=== PATIENT | female | born 1960 | race African-American/Black ===

== ENCOUNTER 2020-05-31 10:10 | Emergency (ER) | payer OTHER, SELFPAY ==
--- NOTE | 2020-05-31 10:18 | ED.GENADULT ---
HPI - General Adult General Chief complaint: Abdominal Pain Stated complaint: Abdominal and hip pain Time Seen by Provider: 05/31/20 10:18 Source: patient Mode of arrival: ambulatory Limitations: no limitations History of Present Illness HPI narrative: 60-year-old female patient presents to the [facility] with complaints of abdominal pain that has been going on since Saturday. Patient states the abdominal pain does radiate to the right hip at times. Patient states is been intermittent all weekend however got increasingly worse yesterday and today. Patient states that sitting still she rates her pain 3 out of 10 however moving and trying to walk states that her abdominal pain increases to about 8 out of 10. Denies any fevers, nausea, vomiting or diarrhea. Patient denies seeing anything for pain today. Patient denies any pain with urination urgency or frequency. Related Data Home Medications Medication Instructions Recorded Confirmed metformin 500 mg tablet 500 mg PO BID PRN 07/28/19 05/12/20 Allergies Allergy/AdvReac Type Severity Reaction Status Date / Time coconut Allergy Unknown Hives Verified 05/31/20 10:28 Review of Systems Review of Systems: Narrative: CONSTITUTIONAL: Denies fever, chills, or sweats. EYES: Denies visual changes, redness, or discharge. ENT: Denies rhinorrhea, congestion, sore throat, or otalgia. CARDIOVASCULAR: Denies chest pain, palpitations, or edema. RESPIRATORY: Denies cough or dyspnea. GASTROINTESTINAL: Positive right lower quadrant abdominal pain, denies nausea, vomiting, or diarrhea. GENITOURINARY: Denies dysuria or hematuria. SKIN: Denies rash or itching. MUSCULOSKELETAL: Denies back pain, joint pain, or myalgia. Positive right hip pain NEUROLOGIC: Denies headache, numbness, or weakness. PSYCHIATRIC: Denies anxiety or depression. [facility] Past Medical History Medical History Ascending aorta dilatation 4.0 cm on 12/2017 ct Body mass index (BMI) 35.0-35.9, adult (04/10/17) COPD (chronic obstructive pulmonary disease) Diabetes Diastolic dysfunction Dyslipidemia Family history of colon cancer Hyperlipidemia, unspecified Impaired glucose tolerance DEBBIE (obstructive sleep apnea) DEBBIE on CPAP Postmenopausal Seasonal allergies Trichomonas vaginalis (TV) infection Trigger finger of left thumb Trigger finger of right thumb Trigger thumb, right thumb Surgical History Surgical History H/O tubal ligation H/O: hysterectomy Family History Family History Mother Cerebrovascular accident Family history of cardiovascular disease Sibling Hypertension Family history of elevated blood lipids Family history of diabetes mellitus in first degree relative Father Patient's father is Other Diabetes mellitus Social History Social History Smoking status: Never smoker Second hand tobacco smoke exposure: No Alcohol intake: current Gender identity (if verbalized by the patient): Female Comments At the time of my signature I agree with nursing past medical history, surgical, social, and family history. There is no relevant family history pertinent to the presenting complaint. Exam Narrative: Exam Narrative: GENERAL: Well-appearing, well-nourished, and in no acute distress. HEAD: Normocephalic, atraumatic. EYES: PERRLA and EOMI. ENT: Nares clear, no rhinorrhea or epistaxis. Mucous membranes moist. NECK: Supple. No lymphadenopathy CHEST: Clear to auscultation. No respiratory distress. HEART: Regular rate and rhythm. No murmur heard. Normal peripheral pulses. ABDOMEN: Soft, flat, nondistended. No guarding, rebound tenderness, or rigid. No pulsatilla masses. Patient has severe pain to right lower quadrant abdominal palpation. Slight pain also noted to the
[2020-05-31 10:19] VITALS: BP 151/93; PULSE 91; RESP 16; TEMP 36.7; O2SAT 100
== END 2020-05-31 10:40 | disposition short-term general hospital (02) ==
PROVIDERS: Emergency Provider Nurse Practitioner Family; PCP Internal Medicine
DX: R10.31 Right lower quadrant pain (principal); J44.9 Chronic obstructive pulmonary disease, unspecified; E11.9 Type 2 diabetes mellitus without complications; E78.5 Hyperlipidemia, unspecified; G47.33 Obstructive sleep apnea (adult) (pediatric)
CPT/HCPCS: 99212; G0463

== ENCOUNTER 2020-05-31 10:59 | Emergency (ER) | payer OTHER, SELFPAY ==
--- NOTE | ~2020-05-31 | XR_ITS ---
EXAMINATION: XR hip RT 2V w AP pelvis DATE: 05/31/2020 13:33 INDICATION: Right hip pain. TECHNIQUE: An anteroposterior view of the pelvis and 2 views of right hip were obtained. COMPARISON: CT abdomen and pelvis 05/31/2020 FINDINGS: Bone alignment is normal. No fracture. There is mild osteoarthritis of the hips. There is s evere lower lumbar spondylosis. IMPRESSION: 1. Mild osteoarthritis of the hips. Reviewed, dictated and finalized at location A.
--- NOTE | ~2020-05-31 | CT_ITS ---
EXAMINATION: CT abdomen pelvis w con DATE: 05/31/2020 13:20 INDICATION: Right lower quadrant abdominal pain. TECHNIQUE: Computed tomography (CT) of the abdomen and pelvis was performed with 100 mL Omnipaque 350 intravenous contrast. Automated exposure control and iterative reconstruction technique were employe d. The dose-length product was 1374.69 mGy-cm. COMPARISON: None. FINDINGS: The visualized portions of the lung bases demonstrate mild atelectasis. No pleural effusion . The heart size is normal. No pericardial effusion. There is a 16 mm cyst in the liver. The gallblad august, spleen, pancreas, adrenal glands, and kidneys are normal. There are no dilated loops of bowel. T he appendix is normal. There are no pathologically enlarged lymph nodes. There is no free intraperito kyrs fluid. There is mild osteoarthritis of the hips. There is severe lower lumbar spondylosis. IMPRESSION: 1. No specific etiology for the patient's symptoms. Reviewed, dictated and finalized at location A.
[2020-05-31 11:05] VITALS: BP 180/114; PULSE 94; RESP 18; TEMP 36; O2SAT 100
[2020-05-31 12:26] LABS: Basophils Absolute Auto 0.1 K/mm3 (0.0-0.1); Basophils Percent Auto 0.8 % (0.2-1.2); Eosinophils Absolute Auto 0.1 K/mm3 (0-0.3); Hematocrit 43.6 % (37.0-47.0); Hemoglobin 14.3 g/dL (12.0-15.0); Immature Granulocyte Absolute 0.02 K/mm3 (0.00-0.031); Immature Granulocyte Percent A 0.3 % (0-0.5); Lymphocytes Absolute Auto 2.26 K/mm3 (0.9-3.2); Mean Corpuscular HGB Conc 32.8 g/dl (32-36); Mean Corpuscular Hemoglobin 28.8 pg (26-34); Mean Corpuscular Volume 87.7 fl (80-100); Mean Platelet Volume 11.2 fl (7.4-10.4); Monocytes Absolute Auto 0.5 K/mm3 (0.1-0.6); Monocytes Percent Auto 7.9 % (2.6-8.5); Neutrophils Absolute Auto 3.2 K/mm3 (1.3-6.7); Platelet Count Result 220 k/mm3 (150-375); Red Blood Count 4.97 M/mm3 (4.2-5.4); Red Cell Distribution Width 14.2 % (11.5-14.5); White Blood Count 6.1 K/mm3 (4.5-10.0)
[2020-05-31 12:31] LABS: Add Urine Microscopic? NO; Appearance Urine Clear (Clear); Bilirubin Urine Negative (Negative); Blood Urine Negative (Negative); Color Urine Yellow (Yellow); Glucose Urine UA Negative (Negative); Ketones Urine Negative (Negative); Leukocyte Esterase Ur Negative LEU/UL (Negative); Nitrate Urine Negative (Negative); Protein Urine Negative (Negative); RBC Urine 0-2 /hpf (0-2); Specific Grav Ur 1.017 (1.001-1.035); Squamous Epithelial Cell Urine Rare /hpf (Few); Urobilinogen Urine Negative mg/dL (<2.0); WBC Urine 0-3 /hpf
[2020-05-31 12:38] VITALS: BP 143/75; PULSE 73; RESP 18; O2SAT 100
[2020-05-31 12:39] LABS: Alanine Aminotransferase 21 U/L (4-35); Albumin Level 4.6 g/dL (3.5-5.1); Alkaline Phosphatase 99 U/L (38-126); Anion Gap 9 mmol/L (8-16); Aspartate Amino Transferase 21 U/L (14-36); Bilirubin,Total 0.6 mg/dL (0.2-1.3); Blood Urea Nitrogen 12 mg/dL (7-17); Calcium 9.5 mg/dL (8.4-10.2); Carbon Dioxide 31 mmol/L (22-30); Chloride 102 mmol/L (98-107); Estimated CRCL calculation 114 ml/min; Estimated Glomerular Filt Rate > 60; Glucose 122 mg/dL (65-105); Lipase 105 U/L (23-300); Sodium 142 mmol/L (137-145)
--- NOTE | 2020-05-31 12:49 | ED.GENADULT ---
HPI - General Adult General Chief complaint: Abdominal Pain Stated complaint: abd pain Time Seen by Provider: 05/31/20 12:11 Source: patient History of Present Illness HPI narrative: Patient is 60 y/o female complaining of intermittent right lower abdominal pain starting 4 days ago. She describes the pain as sharp with no radiation. She rates her abdominal pain as 7.5/10. She has some nausea, but no vomiting or diarrhea. She has no dysuria or hematuria. She also has severe right hip pain which she rates as 10/10. She denies any recent injury. Related Data Home Medications Medication Instructions Recorded Confirmed metformin 500 mg tablet 500 mg PO BID PRN 07/28/19 05/12/20 Allergies Allergy/AdvReac Type Severity Reaction Status Date / Time coconut Allergy Unknown Hives Verified 05/31/20 11:08 Review of Systems Constitutional: Constitutional: Denies chills, Denies fever(s), Denies headache(s) and Denies weakness Eyes: Eyes: Denies blurry vision ENT: Denies headache(s) and Denies neck pain Cardiovascular: Cardiovascular: Denies chest pain and Denies dyspnea Respiratory: Respiratory: Denies cough and Denies dyspnea Gastrointestinal: Gastrointestinal: Reports abdominal pain, Denies diarrhea, Reports nausea and Denies vomiting Genitourinary: Genitourinary: Denies hematuria and Denies dysuria Musculoskeletal: Musculoskeletal: Denies back pain, Reports arthralgias (+hip pain) and Denies neck pain Neurologic: Denies headache(s) and Denies weakness PMF Past Medical History Medical History Ascending aorta dilatation 4.0 cm on 12/2017 ct Body mass index (BMI) 35.0-35.9, adult (04/10/17) COPD (chronic obstructive pulmonary disease) Diabetes Diastolic dysfunction Dyslipidemia Family history of colon cancer Hyperlipidemia, unspecified Impaired glucose tolerance DEBBIE (obstructive sleep apnea) DEBBIE on CPAP Postmenopausal Seasonal allergies Trichomonas vaginalis (TV) infection Trigger finger of left thumb Trigger finger of right thumb Trigger thumb, right thumb Surgical History Surgical History H/O tubal ligation H/O: hysterectomy Family History Family History Mother Cerebrovascular accident Family history of cardiovascular disease Sibling Hypertension Family history of elevated blood lipids Family history of diabetes mellitus in first degree relative Father Patient's father is Other Diabetes mellitus Social History Social History Smoking status: Never smoker Second hand tobacco smoke exposure: No Alcohol intake: current Gender identity (if verbalized by the patient): Female Exam Const: General: no acute distress and well developed Orientation/consciousness: oriented to person, oriented to place, oriented to time and patient oriented x3 HENMT: Head: normocephalic Ears: external ears normal General nose exam: Normal external nose present Eyes: General: appearance normal, both eyes and all related structures Conjunctivae: conjunctivae normal Neck: Neck: normal visual inspection and full ROM Chest: Chest palpation & inspection: normal inspection of the chest and no tenderness Resp: Effort & Inspection: normal respiratory effort Auscultation: clear to auscultation bilaterally Cardio: Rate: regular rate Rhythm: regular rhythm GI: GI Palp: Yes abdominal tenderness (right lower abdomen) and Yes Soft to palpation Skin: General skin exam: normal color and turgor normal Neuro: General: oriented to person, oriented to place, oriented to time and patient oriented x3 Cognition (Neuro): normal cognition Extrem: General: normal to inspection, full ROM and no pedal edema Psych: Appearance: grossly normal Mental Status: mental status grossly normal Affect: n
[2020-05-31] MEDS: KETOROLAC 30 MG/ML VIAL (*BKC) IV PUSH (12:59)
[2020-05-31 13:58] VITALS: BP 151/91; PULSE 85; RESP 18; O2SAT 97
--- NOTE | 2020-05-31 14:07 | PC.NURSE ---
PT STILL COMPLAINING OF PAIN WITH MOVEMENT, ERP MARÍA INFORMED, NO NEW ORDERS. WILL CONTINUE TO MONITOR.
[2020-05-31 14:48] VITALS: BP 143/79; PULSE 81; RESP 18; O2SAT 100
== END 2020-05-31 14:49 | disposition home or self-care (01) ==
PROVIDERS: Emergency Medicine; Emergency Provider Emergency Medicine; PCP Internal Medicine
DX: R10.31 Right lower quadrant pain (principal); M25.551 Pain in right hip; M16.0 Bilateral primary osteoarthritis of hip; E11.9 Type 2 diabetes mellitus without complications; Z79.84 Long term (current) use of oral hypoglycemic drugs; J44.9 Chronic obstructive pulmonary disease, unspecified; E78.5 Hyperlipidemia, unspecified; G47.33 Obstructive sleep apnea (adult) (pediatric)
CPT/HCPCS: 36415; 73502; 74177; 80053; 81003; 81025; 83690; 85025; 96374; 99284; J1885; Q9967

== ENCOUNTER 2020-10-27 07:11 | Outpatient (CLI) | payer OTHER, SELFPAY ==
[2020-10-27 08:03] LABS: Alanine Aminotransferase 18 U/L (4-35); Albumin Level 4.3 g/dL (3.5-5.1); Alkaline Phosphatase 88 U/L (38-126); Anion Gap 2 mmol/L (8-16); Aspartate Amino Transferase 21 U/L (14-36); Bilirubin,Total 0.8 mg/dL (0.2-1.3); Blood Urea Nitrogen 16 mg/dL (7-17); Calcium 9.1 mg/dL (8.4-10.2); Carbon Dioxide 30 mmol/L (22-30); Chloride 106 mmol/L (98-107); Cholesterol 208 mg/dL (0-200); Estimated Glomerular Filt Rate > 60; Glucose 176 mg/dL (65-105); HDL Direct 49 mg/dL; Potassium 4.2 mmol/L (3.4-5.0); Sodium 138 mmol/L (137-145); Triglycerides 105 mg/dL (<150)
[2020-10-27 08:14] LABS: LDL Cholesterol Direct 135 mg/dL
[2020-10-27 09:05] LABS: Hemoglobin A1C 7.4 % (<5.7)
== END 2020-10-27 07:12 | disposition home or self-care (01) ==
PROVIDERS: PCP Internal Medicine; Visit Provider Nurse Practitioner
DX: E78.5 Hyperlipidemia, unspecified (principal); R73.02 Impaired glucose tolerance (oral); E04.9 Nontoxic goiter, unspecified
CPT/HCPCS: 36415; 80053; 80061; 83036; 84443

== ENCOUNTER → 2020-10-29 01:22 | Outpatient (CLI) | payer OTHER, SELFPAY ==
[2020-10-29 19:42] LABS: SARS-CoV-2 RNA PCR Negative
== END ==
PROVIDERS: PCP Internal Medicine; Visit Provider Orthopaedic Surgery
DX: Z01.812 Encounter for preprocedural laboratory examination (principal); Z20.822 Contact with and (suspected) exposure to COVID-19
CPT/HCPCS: C9803; U0003; U0005

== ENCOUNTER 2020-11-02 01:01 | Day surgery (SDC) | payer OTHER, SELFPAY ==
[2020-10-24 17:45] VITALS: BMI 35.9
[2020-11-02] VITALS (11 sets, daily range): BP systolic 116–162; BP diastolic 79–100; PULSE 82–97; RESP 16–20; TEMP 36.1–36.2; O2SAT 98–100
--- NOTE | 2020-11-02 07:21 | WPDHPUPDATE1 ---
History and Physical Update Update Date/Time: 11/02/20 07:21 History and Physical has been reviewed, including an updated exam of the patient. There are NO changes in the patient's condition. Risks, benefits, and alternatives have been discussed and questions answered. Patient agrees to proceed with procedure.
--- NOTE | 2020-11-02 08:21 | ECG_ITS ---
Measurements Intervals [place] Rate: 81 P: 61 WI: 163 QRS: -30 QRSD: 106 T: 18 QT: 370 QTc: 430 Interpretive Statements SINUS RHYTHM INCOMPLETE RIGHT BUNDLE BRANCH BLOCK VOLTAGE CRITERIA FOR LVH MINIMAL Q WAVES- HIGH LATERAL LEADS BORDERLINE ECG Electronically Signed On 11-02-2020 10:18:30 TWITCHELL OPERATOR by Abelino Gonzalez D.O.
[2020-11-02] MEDS: ACETAMINOPHEN 500 MG TABLET 1000 MG PO (09:03)
[2020-11-02] MEDS: LACTATED RINGERS 1,000 ML 30 ML IV CONT ×2 (09:04→15:02)
[2020-11-02] MEDS: CELECOXIB 200 MG CAPSULE PO (09:04)
[2020-11-02 09:15] LABS: Glucose Point of Care 159 (65-105)
--- NOTE | 2020-11-02 09:27 | WPDANESEPPF ---
Anes - Initial Pre Proc Eval Procedure: Operation Date: 11/02/20 10:30 Proposed Procedures p Right Rotator Cuff Repair, Possible Distal Clavicle Excision - Brayan Butler MD s Left Shoulder Injection - Brayan Butler MD Date/Time: 11/02/20 09:27 Surgeon: Brayan Butler MD Pre Op Diagnosis: Right Rotator Cuff Tear, Left shoulder Pain Patient Data Age: 60 Gender: F Height: 6 ft 2 in Weight: 127 kg Allergies Allergy/AdvReac Type Severity Reaction Status Date / Time coconut Allergy Unknown Hives Verified 10/27/20 13:03 Home Medications Medication Instructions Recorded Confirmed Type No Home Medications 10/27/20 10/27/20 History Laboratory Tests 11/02/20 09:10 POC Capillary Glucose 159 mg/dl H mg/dl (65-105) Patient hx anesthesia problems: none Family hx anesthesia problems: none PMFSH Past Medical History Medical History Ascending aorta dilatation 4.0 cm on 12/2017 ct Body mass index (BMI) 35.0-35.9, adult (04/10/17) Cervical spine pain COPD (chronic obstructive pulmonary disease) Diabetes Diastolic dysfunction Dyslipidemia Family history of colon cancer Hyperlipidemia, unspecified Impaired glucose tolerance DEBBIE (obstructive sleep apnea) DEBBIE on CPAP Postmenopausal Right shoulder pain Seasonal allergies Trichomonas vaginalis (TV) infection Trigger finger of left thumb Trigger finger of right thumb Trigger thumb, right thumb Surgical History Surgical History H/O tubal ligation H/O: hysterectomy Family History Family History Mother Cerebrovascular accident Family history of cardiovascular disease Sibling Hypertension Family history of elevated blood lipids Family history of diabetes mellitus in first degree relative Father Patient's father is Other Diabetes mellitus Social History Social History Smoking status: Current every day smoker (marijuana ) Second hand tobacco smoke exposure: No Alcohol intake: current Substance use: current Substance use type: marijuana Other substance usage details: USES MARIJUANA FOR PAIN CONTROL Living arrangements: alone Gender identity (if verbalized by the patient): Female Spiritual care concerns: No Anes - Eval Final PreProcedure Day of Procedure 11/02/20 09:27 Patient weight: obese Heart: regular rate and rhythm Lungs: decreased breath sounds Airway: Mallampati scale class II Neurological: alert and oriented Last oral intake: >/= 8 hours ASA classification: III Emergent: no Anesthetic plan: proceed Anesthesia type and monitoring: general ETT and standard monitoring Informed Consent: The patient's anesthetic plan and its attendant risks and benefits were discussed with the patient/family/POA. Questions were solicited and answers provided to the satisfaction of the patient/family/POA.
[2020-11-02] MEDS: ceFAZolin 3 GM/D5W 100 ML 100 ML IVPB (11:53)
--- NOTE | 2020-11-02 11:56 | WPDANESPNB ---
Anes - Peripheral Nerve Block Date/Time: 11/02/20 11:56 I have discussed with the patient/family/POA the placement of a peripheral nerve block for post-operative pain management, including associated risks, benefits, complications, and side effects. Alternative methods of post-operative analgesia were detailed. Questions were solicited and answers provided to the satisfaction of the patient/family/POA. Time-Out: A pre-procedural Time-Out was completed immediately before starting the procedure and confirmed: Patient Identification, Site, Procedure, Patient Position and the Availability of Requisite Equipment. Clinical Indications: Acute post-operative pain management requested by the operative surgeon. Nerve Block Insertion Note Anes-nerve block: interscalene right Patient position: other (sitting) Skin prep: chlorhexidine Needle: 22 gauge, stimulating, insulated echogenic needle. Needle length: 50 mm Technique: nerve stimulation lost at (mA) (0.29) Technique comment: fent 100mcg,versed 2mg Injectate: bupivacaine 0.5% with epi 5 mcg/ml (30) Observations: tolerated well Complications: none Procedure start time:: 1140 Procedure end time:: 1148
[2020-11-02] MEDS: methylPREDNISolone ACETATE 80 MG/ML VIAL IM (13:00)
[2020-11-02] MEDS: BUPIVACAINE HCL 0.5% PF 30 ML VIAL INFILTRATE (13:00)
--- NOTE | 2020-11-02 13:33 | P.OP_ITS ---
Procedure Note - Detailed Date of procedure: 11/02/20 Pre-op diagnosis: Right Rotator Cuff Tear, Left shoulder Pain Post-op diagnosis: same Procedure performed: REPAIR OF RIGHT ROTATOR CUFF, INJECTION LEFT SHOULDER Description of procedure: THE PATIENT WAS TAKEN TO THE OPERATING ROOM AND THEN INTUBATED AND PLACED IN THE BEACH CHAIR POSITION. THE RIGHT UPPER EXTREMITY WAS PREPPED AND DRAPED IN THE NORMAL STERILE FASHION. AN INCISION WAS MADE IN BETWEEN THE ROBE-LATERAL ACROMION AND THE AC JOINT. THE FASCIA WAS IDENTIFIED. NEXT A MINI OPEN INCISION WAS MADE THROUGH THE DELTOID MUSCLE EXPOSING THE SUBACROMIAL SPACE. A LIMITED ACROMIOPLASTY WAS PREFORMED. THE ROTATOR CUFF WAS IDENTIFIED. THERE WAS A FULL THICKNESS TEAR. IT MEASURED APPROXIMATELY 2 CM X 1 CM. THE GREATER TUBEROSITY WAS DEBRIDED TO BLEEDING BONE. 1 ARTHREX 5.5 SUTURE ANCHOR Was PLACED IN TO GOOD BONE AND HAD VERY GOOD BITES. MEDARDO-SHAAN TYPE REPAIRS WERE DONE TO THE ROTATOR CUFF AND THERE WAS GOOD APPROXIMATION TO THE GREATER TUBEROSITY. THE REPAIR WAS EXCELLENT. THERE WAS NO IMPINGEMENT ON THE REPAIR FROM THE ACROMION WITH RANGE OF MOTION. THE WOUND WAS IRRIGATED WITH COPIOUS AMOUNTS OF ANTIBIOTIC SOLUTION. THE DELTOID MUSCLE WAS REPAIRED WITH #2 FIBER WIRE AND 0 VICRYL SUTURE. THE SUBCUTANEOUS LAYER WAS APPROXIMATED WITH 2- 0 VICRYL. THE SKIN WAS APPROXIMATED WITH 3-0 QUIL AND DERMABOND. A STERILE DRESSING WAS APPLIED. NEXT, THE LEFT SHOULDER WAS IDENTIFIED AND PREPPED. DEPO MEDROL 1 CC AND MARCAINE 0.5% 5CCs WAS INJECTED TO THE SUB ACROMIAL SPACE. STERILE DRESSING WAS APPLIED. PATIENT WAS EXTUBATED AND SENT TO THE RECOVERY ROOM. Anesthesia: GETA Surgeon: Brayan Butler MD Estimated blood loss (mL): 20 Complications: No immediate complications Condition: stable Disposition: PACU
[2020-11-02 13:58] LABS: Glucose Point of Care 186 (65-105)
--- NOTE | 2020-11-02 16:50 | SUR.PHASEII ---
1650- Patient requested immobilizer sling be sent home with her. Dr. Butler in to bedside to discuss sling. 1655- Patient provided with immobilizer sling and applied to right shoulder. Gely verbalized understanding of use of immobilizer sling and sent home with instructions.
== END 2020-11-02 16:57 | disposition home or self-care (01) ==
PROVIDERS: PCP Internal Medicine; Visit Provider Orthopaedic Surgery
PROC: (CPT 23420; principal; 2020-11-02 10:30)
PROC: (CPT 23420; 2020-11-02 10:30)
DX: M75.101 Unspecified rotator cuff tear or rupture of right shoulder, not specified as traumatic (principal); G89.18 Other acute postprocedural pain; J44.9 Chronic obstructive pulmonary disease, unspecified; E11.9 Type 2 diabetes mellitus without complications; E78.5 Hyperlipidemia, unspecified; G47.33 Obstructive sleep apnea (adult) (pediatric); I77.810 Thoracic aortic ectasia; I51.89 Other ill-defined heart diseases; F12.90 Cannabis use, unspecified, uncomplicated; E66.9 Obesity, unspecified; Z68.34 Body mass index [BMI] 34.0-34.9, adult
CPT/HCPCS: 23420; 20610; 64415; 82948; 93005; A4565; A9270; C1713; J0171; J0330; J0690; J1040; J1100; J2250; J2370; J2405; J2704; J3010; J7120

== ENCOUNTER 2021-02-02 08:13 | Outpatient (CLI) | payer OTHER, SELFPAY ==
[2021-02-02 08:41] LABS: Cholesterol 194 mg/dL (0-200); HDL Direct 47 mg/dL; Hemoglobin A1C 6.7 % (<5.7); Triglycerides 152 mg/dL (<150)
[2021-02-02 08:52] LABS: LDL Cholesterol Direct 104 mg/dL
== END 2021-02-02 08:14 | disposition home or self-care (01) ==
LOC: ANHLAB 08:15
PROVIDERS: PCP Internal Medicine; Visit Provider Nurse Practitioner
DX: E11.65 Type 2 diabetes mellitus with hyperglycemia (principal); E78.5 Hyperlipidemia, unspecified
CPT/HCPCS: 36415; 80061; 83036

== ENCOUNTER 2021-08-28 07:41 | Outpatient (CLI) | payer OTHER, SELFPAY ==
--- NOTE | 2021-08-29 17:46 | WPDHOMESLEEP ---
Sleep Study - Home Unattended Date of Study: 08/28/21 <Talita Tipton DO - Last Filed: 08/29/21 18:04> Ordering Provider: Rosangela Potts MD <Talita Tipton DO - Last Filed: 08/29/21 18:04> Interpreting Provider: Talita Tipton DO <Talita Tipton DO - Last Filed: 08/29/21 18:04> Home Sleep Study Type: Apnea Link Air <Talita Tipton DO - Last Filed: 08/29/21 18:04> Height: 1.88 m <Talita Tipton DO - Last Filed: 08/29/21 18:04> Weight: 135.624 kg <Talita Tipton DO - Last Filed: 08/29/21 18:04> Body Mass Index: 38.4 <Talita Tipton DO - Last Filed: 08/29/21 18:04> Neck Circumference (inches): 17.5 <Talita Tipton DO - Last Filed: 08/29/21 18:04> [place]: 9 <Talita Tipton DO - Last Filed: 08/29/21 18:04> Reason for Sleep Study Previously diagnosed with sleep apnea needs new supplies <Talita Tipton DO - Last Filed: 08/29/21 18:04> Sleep History The patient is a 61-year-old female with ascending aorta dilation, COPD, diabetes, diastolic dysfunction, dyslipidemia and previously diagnosed DEBBIE had a sleep study ordered by her jewelry maker. The patient has a brother and a nephew supple without sleep apnea. The patient rarely awakens from sleep short of breath. She denies awakening at night with heartburn, belching or cough. She occasionally snores but he is really loud enough that others complain. She occasionally has trouble sleeping when she has a cold. She denies waking up gasping for air throughout the night. She denies having breathing problems at night observed by others. She occasionally sweats excessively at night. She rarely notices heart palpitations or irregular heartbeats. She rarely falls asleep during the day rarely falls asleep while driving. She denies cataplexy. She frequently has trouble at work due to sleepiness. She denies sleep paralysis. She rarely experiences vivid dreamlike scenes upon awakening or falling asleep. She occasionally has nightmares. She constantly has thoughts racing through her mind. She occasionally feels sad or depressed. She rarely has anxiety. She occasionally notices parts of her body jerk. She rarely kicks during the night. She occasionally has crawling and aching feelings in her legs as well as leg pain during the night. She denies grinding her teeth during sleep and awakening with morning jaw pain. She is occasionally bothered by pain during the day and frequently awakened by pain during the night. She occasionally wakes up feeling stiff in the morning. She rarely wakes up with sore achy muscles. She frequently wakes up with pain in the neck, spine and other joints. The patient goes to bed between 10 and 11:00 p.m. on both weekdays and weekends. It takes her at least 30 minutes to fall asleep. She wakes up 1-2 times throughout the night. When she awakens, she will relax or watch television. She typically cannot fall back asleep. She wakes up at 5:00 a.m. on weekdays and between 6 and 7:00 a.m. on the weekends. She typically gets between 3 and 4 hours of sleep per night. She will stay in bed for 30 minutes after wakening in the morning. She currently lives by herself. She does not consume any caffeinated beverages within 2 hours of bedtime. She will engage in physical exercise before bedtime. She will watch television before falling asleep. She does not take naps in the afternoon or the evening. She drinks 10-16 oz of caffeinated beverage per day. She will have 1-2 alcoholic beverages per week. She denies tobacco use. She will use marijuana for pain or to help her fall asleep. <Talita Tipton DO - Last Filed: 08/29/21 18:04> [facility], [facility] Past Medical History Medical History: Medical History Ascending aorta dilatation 4.0 cm on 12/2017 ct Body mass index (BMI) 35.0-35.9, adult (0
[2021-08-29 18:03] VITALS: BMI 38.4
== END 2021-08-29 11:53 | disposition home or self-care (01) ==
LOC: ANHCSM 07:41
PROVIDERS: PCP Internal Medicine; Visit Provider Internal Medicine Critical Care Medicine
DX: G47.10 Hypersomnia, unspecified (principal); G47.39 Other sleep apnea
CPT/HCPCS: 95806

== ENCOUNTER 2021-09-29 14:36 | Outpatient (CLI) | payer OTHER, SELFPAY ==
--- NOTE | 2021-09-29 14:53 | ECHO_ITS ---
Patient Info Name: Gely Leon Age: 61 years : 1960 Gender: Female Ht: 74 in Wt: 255 lbs BSA: 2.49 m2 HR: 78 bpm BP: 151 / 84 mmHg Technical Quality: Good Exam Date: 09/29/2021 3:15 PM Exam Location: [facility] Patient Status: Outpatient Admit Date: 09/29/2021 Staff Ordering Physician: Peter Brady APRN [employer] Weighter: Dawn Garcia RDCS Attending Provider: Peter Brady APRN Referring Physician: Jose Antonio LICONA; Exam Type: CA echo doppler color flow Study Info Indications - SLEEP APNEA Complete two-dimensional, color flow and Doppler transthoracic echocardiogram is performed. Summary 1. Complete two-dimensional, color flow and Doppler transthoracic echocardiogram is performed. 2. Left ventricular chamber dimension is normal. 3. Left ventricular systolic function is normal, estimated at 60-65%. 4. There is mildly increased left ventricular wall thickness. 5. The left ventricular diastolic function is grade II diastolic dysfunction. 6. E/e' 15 is elevated. 7. Left atrial chamber dimension is mildly enlarged. 8. There is trace mitral valve regurgitation. 9. There is trace tricuspid valve regurgitation. 10. No pulmonary hypertension, estimated pulmonary arterial systolic pressure is 34 mmHg. Left Ventricle E/e' 15 is elevated. Left ventricular chamber dimension is normal. Left ventricular systolic function is normal, estimated at 60-65%. There is mildly increased left ventricular wall thickness. The left ventricular diastolic function is grade II diastolic dysfunction. Right Ventricle Right ventricular chamber dimension is normal. Right ventricular systolic function is normal. Left Atria Left atrial chamber dimension is mildly enlarged. Right Atria Right atrial chamber dimension is normal. Aortic Valve The aortic valve is trileaflet. There is no aortic valve stenosis. There is no aortic valve regurgitation. Pulmonic Valve There is no pulmonic regurgitation. Mitral Valve There is no mitral valve stenosis. There is trace mitral valve regurgitation. Tricuspid Valve There is trace tricuspid valve regurgitation. No pulmonary hypertension, estimated pulmonary arterial systolic pressure is 34 mmHg. Pericardium/Pleural There is no pericardial effusion. Inferior Vena Cava Normal inferior vena cava with >50% collapse upon inspiration consistent with normal right atrial pressure, 5 mmHg. Aorta The aortic root size at the sinus of Valsalva is normal. Left Ventricular Outflow Tract Name Value Normal LVOT 2D LVOT Diameter 2.0 cm LVOT Doppler LVOT Peak Gradient 4 mmHg LVOT Mean Gradient 3 mmHg LVOT VTI 22 cm LVOT VTI/AV VTI Ratio 0.8 LVOT Stroke Volume 70 ml LVOT CO 15.1 l/min LVOT CI 6.1 l/min/m2 Pulmonic Valve Name Value
== END 2021-09-29 14:37 | disposition home or self-care (01) ==
LOC: ANHCARD 14:37
PROVIDERS: PCP Internal Medicine; Visit Provider Nurse Practitioner Family
DX: G47.39 Other sleep apnea (principal); I51.7 Cardiomegaly
CPT/HCPCS: 93306

== ENCOUNTER 2021-10-06 07:27 | Outpatient (CLI) | payer OTHER, SELFPAY ==
--- NOTE | 2021-10-09 12:18 | WPDSLEEPSTUD ---
Sleep Study Date of Study: 10/06/21 Ordering Provider: Peter Brady APRN Interpreting Physician: Rosangela Potts MD Sleep Study Type: CPAP Titration Height: 1.88 m Weight: 115.666 kg Body Mass Index: 32.7 Neck Circumference (inches): 17 [place]: 5 Reason for Sleep Study *Home sleep apnea test using [employer] 08/28/2021 showing moderate mixed sleep apnea with an AHI of 16.2 and a central apnea index of 7.4 which is elevated above 5. She presents for a CPAP titration. Sleep History Gely Leon is a 61 year-old female with moderate sleep apnea diagnosed on 08/28/2021 home sleep test. She had a central apnea idex of 7.1 and a recent echo Sep 29, 2021 showed estimated at 60-65%. Past medical history includes aorta dilation, COPD, diabetes, diastolic dysfunction, dyslipidemia and previously diagnosed DEBBIE. The patient rarely awakens from sleep short of breath. She denies awakening at night with heartburn, belching or cough. She occasionally snores but rarely is it loud enough that others complain. She occasionally has trouble sleeping when she has a cold. She denies waking up gasping for air during the night. She denies having breathing problems at night observed by others. She occasionally sweats excessively at night. She rarely notices heart beating irregularly at night. She rarely falls asleep during the day, and rarely falls asleep while driving. She denies muscle weakness with strong emotion. She frequently has trouble at work due to sleepiness. She denies sleep paralysis. She rarely experiences vivid dreamlike scenes upon awakening or falling asleep. She occasionally has nightmares. She constantly has thoughts racing through her mind. She occasionally feels sad or depressed. She rarely has anxiety. She occasionally notices parts of her body jerk. She rarely kicks during the night. She occasionally has crawling and aching feelings in her legs as well as leg pain during the night. She denies grinding her teeth during sleep and awakening with morning jaw pain. She is occasionally bothered by pain during the day and frequently awakened by pain during the night. She occasionally wakes up feeling stiff in the morning. She rarely wakes up with sore achy muscles. She frequently wakes up with pain in the neck, spine and other joints. The patient goes to bed between 10 and 11:00 p.m, taking at least 30 minutes to fall asleep. She wakes up 1-2 times throughout the night. When she awakens, she will relax or watch television. She typically cannot return to sleep easily. She wakes at 5:00 a.m. on weekdays and between 6:00 a.m. and 7:00 a.m. on the weekends. She typically gets between 3 and 4 hours of sleep per night. She will stay in bed for 30 minutes after waking in the morning. She currently lives by herself. She does not take naps in the afternoon or the evening. Habits: Never used tobacco. She drinks 10-16 oz of caffeinated beverage per day. She will have 1-2 alcoholic beverages per week. She will use marijuana for pain or to help her fall asleep. [facility] Past Medical History Medical History Ascending aorta dilatation 4.0 cm on 12/2017 ct Body mass index (BMI) 35.0-35.9, adult (04/10/17) Cervical spine pain COPD (chronic obstructive pulmonary disease) Diabetes Diastolic dysfunction Dyslipidemia Family history of colon cancer Hyperlipidemia, unspecified Impaired glucose tolerance Left shoulder pain DEBBIE (obstructive sleep apnea) DEBBIE on CPAP Postmenopausal Right shoulder pain Rotator cuff tear, non-traumatic Seasonal allergies Trichomonas vaginalis (TV) infection Trigger finger of left thumb Trigger finger of right thumb Trigger thumb, right thumb Surgical History Surgical History H/O shoulder surgery H/O tubal ligation H/O: hysterectomy History of back surgery History of surgical removal of ganglion cyst
[2021-10-09 12:54] VITALS: BMI 32.7
== END 2021-10-07 07:02 | disposition home or self-care (01) ==
LOC: ANHCSM 07:28
PROVIDERS: PCP Internal Medicine; Visit Provider Nurse Practitioner Family
DX: G47.33 Obstructive sleep apnea (adult) (pediatric) (principal); G47.39 Other sleep apnea; Z68.32 Body mass index [BMI] 32.0-32.9, adult
CPT/HCPCS: 95811

== ENCOUNTER 2021-11-04 07:18 | Outpatient (CLI) | payer OTHER, SELFPAY ==
[2021-11-04 08:51] LABS: Alanine Aminotransferase 19 U/L (4-35); Albumin Level 4.2 g/dL (3.5-5.1); Alkaline Phosphatase 85 U/L (38-126); Anion Gap 4 mmol/L (8-16); Aspartate Amino Transferase 25 U/L (14-36); Blood Urea Nitrogen 10 mg/dL (7-17); Carbon Dioxide 32 mmol/L (22-30); Chloride 104 mmol/L (98-107); Cholesterol 201 mg/dL (0-200); Estimated Glomerular Filt Rate > 60; Glucose 140 mg/dL (65-110); HDL Direct 46 mg/dL; Potassium 4.2 mmol/L (3.4-5.0); Sodium 140 mmol/L (137-145); Triglycerides 137 mg/dL (<150)
[2021-11-04 08:55] LABS: Hemoglobin A1C 6.9 % (<5.7)
[2021-11-04 09:01] LABS: LDL Cholesterol Direct 121 mg/dL
[2021-11-04 09:20] LABS: Thyroid Stimulating Hormone 0.936 uIU/mL (0.465-4.680)
== END 2021-11-04 07:19 | disposition home or self-care (01) ==
PROVIDERS: PCP Internal Medicine; Visit Provider Nurse Practitioner Family
DX: E11.65 Type 2 diabetes mellitus with hyperglycemia (principal); E04.9 Nontoxic goiter, unspecified; E78.5 Hyperlipidemia, unspecified; G47.61 Periodic limb movement disorder
CPT/HCPCS: 36415; 80053; 80061; 82728; 83036; 84443

== ENCOUNTER 2022-03-16 14:38 | Outpatient (CLI) | payer OTHER, SELFPAY ==
--- NOTE | ~2022-03-16 | CT_ITS ---
EXAMINATION: CT brain wo/w con DATE: 03/16/2022 14:32 INDICATION: Migraine headache. TECHNIQUE: Computed tomography (CT) of the head was performed without and with 100 mL Omnipaque 300 i ntravenous contrast. The mA was adjusted according to patient size. Iterative reconstruction techniqu e was employed. The dose-length product was 1210.67 mGy-cm. COMPARISON: None FINDINGS: There is no intracranial hemorrhage, acute infarction, or abnormal intracranial mass lesion . There is an empty sella. The ventricles are normal in size. There is mild mucosal thickening in t he ethmoid sinuses. The mastoid air cells are normal. The orbits are normal. IMPRESSION: 1. No etiology for the patient's symptoms. Reviewed, dictated and finalized at location A.
[2022-03-16 14:26] LABS: Estimated Glomerular Filt Rate > 60
[2022-03-16 15:21] LABS: Alanine Aminotransferase 20 U/L (6-35); Albumin Level 4.4 g/dL (3.5-5.1); Alkaline Phosphatase 87 U/L (38-126); Aspartate Amino Transferase 25 U/L (14-36); Bilirubin,Total 0.6 mg/dL (0.2-1.3); Cholesterol 115 mg/dL (0-200); HDL Direct 40 mg/dL; Triglycerides 97 mg/dL (<150)
[2022-03-16 15:32] LABS: LDL Cholesterol Direct 44 mg/dL
== END 2022-03-16 14:39 | disposition home or self-care (01) ==
PROVIDERS: PCP Internal Medicine; Visit Provider Nurse Practitioner
DX: G43.909 Migraine, unspecified, not intractable, without status migrainosus (principal); E78.5 Hyperlipidemia, unspecified; Z79.899 Other long term (current) drug therapy
CPT/HCPCS: 70470; 80061; 80076; Q9967

== ENCOUNTER 2022-07-17 16:15 | Outpatient (CLI) | payer OTHER, SELFPAY ==
--- NOTE | ~2022-07-17 | XR_ITS ---
XR lumbar spine 2-3V DATE: 07/17/2022 16:43 INDICATION: Back pain. No injury. TECHNIQUE: AP, lateral, coned lateral lumbosacral views COMPARISON: None FINDINGS: Normal alignment of the lumbar spine. There is mild degenerative disc disease of the lumbar interspaces and moderately severe degenerative disc disease at L5-S1. No fracture or bone destruction or spondylolisthesis. The lumbar pedicles and sacral iliac joints are intact. IMPRESSION: Moderately severe degenerative disease at L5-S1 and mild degenerative disc disease at the lumbar interspaces Reviewed, dictated and finalized at location A. TIONAL AIDE IMPRESSION: Moderately severe degenerative disease at L5-S1 and mild degenerati ve disc disease at the lumbar interspaces
== END 2022-07-17 16:16 | disposition home or self-care (01) ==
LOC: ANHIMG 16:17
PROVIDERS: PCP Internal Medicine; Visit Provider Internal Medicine
DX: M54.9 Dorsalgia, unspecified (principal); M51.36 Other intervertebral disc degeneration, lumbar region
CPT/HCPCS: 72100

== ENCOUNTER 2022-08-18 09:29 | Outpatient (CLI) | payer OTHER, SELFPAY ==
[2022-08-18 10:54] LABS: Alanine Aminotransferase 19 U/L (6-35); Albumin Level 4.5 g/dL (3.5-5.1); Alkaline Phosphatase 96 U/L (38-126); Anion Gap 6 mmol/L (8-16); Aspartate Amino Transferase 19 U/L (14-36); Bilirubin,Total 1.1 mg/dL (0.2-1.3); Blood Urea Nitrogen 14 mg/dL (7-17); Calcium 9.1 mg/dL (8.4-10.2); Carbon Dioxide 27 mmol/L (22-30); Chloride 108 mmol/L (98-107); Cholesterol 137 mg/dL (0-200); Estimated Glomerular Filt Rate > 60; Glucose 106 mg/dL (65-110); HDL Direct 44 mg/dL; Sodium 141 mmol/L (137-145); Triglycerides 90 mg/dL (<150)
[2022-08-18 11:05] LABS: LDL Cholesterol Direct 67 mg/dL
[2022-08-18 11:38] LABS: Vitamin D 25 Hydroxy 16.1 ng/mL
== END 2022-08-18 09:30 | disposition home or self-care (01) ==
LOC: ANHLAB 09:30
PROVIDERS: PCP Internal Medicine; Visit Provider Internal Medicine
DX: Z13.21 Encounter for screening for nutritional disorder (principal); R73.02 Impaired glucose tolerance (oral); E11.65 Type 2 diabetes mellitus with hyperglycemia; E78.5 Hyperlipidemia, unspecified
CPT/HCPCS: 36415; 80053; 80061; 82306; 83036

== ENCOUNTER 2022-11-09 07:21 | Outpatient (CLI) | payer OTHER, SELFPAY ==
--- NOTE | ~2022-11-09 | MR_ITS ---
EXAMINATION: MR brain/brain stem wo/w con DATE: 11/09/2022 08:42 INDICATION: Headache. Migraine. TECHNIQUE: Magnetic resonance imaging (MRI) of the brain and brainstem was performed without and with 20 mL MultiHance intravenous contrast. COMPARISON: Head CT 03/16/2022. FINDINGS: There is an empty sella. There are scattered areas of nonspecific increased T2-weighted sig nal intensity in the cerebral white matter, which is within normal limits for the patient's age. Ther e is no intracranial hemorrhage, acute infarction, or abnormal intracranial mass lesion. The ventricl es are normal in size. The paranasal sinuses are clear. The orbits are normal. There is a trace right mastoid effusion. IMPRESSION: 1. No etiology for the patient's symptoms. Reviewed, dictated and finalized at location A. [employer]
[2022-11-09 09:10] LABS: Basophils Percent Auto 0.8 % (0.2-1.2); Eosinophils Absolute Auto 0.2 K/mm3 (0-0.3); Eosinophils Percent Auto 3.5 % (0-4.4); Hemoglobin 14.4 g/dL (12.0-15.0); Immature Granulocyte Absolute 0.01 K/mm3 (0.00-0.031); Immature Granulocyte Percent A 0.2 % (0-0.5); Lymphocytes Absolute Auto 2.15 K/mm3 (0.9-3.2); Lymphocytes Percent Auto 41.5 % (18.3-44.2); Mean Corpuscular HGB Conc 31.3 g/dl (32-36); Mean Corpuscular Hemoglobin 27.8 pg (26-34); Mean Corpuscular Volume 88.8 fl (80-100); Mean Platelet Volume 10.5 fl (7.4-10.4); Monocytes Absolute Auto 0.5 K/mm3 (0.1-0.6); Monocytes Percent Auto 8.9 % (2.6-8.5); Neutrophils Absolute Auto 2.3 K/mm3 (1.3-6.7); Neutrophils Percent Auto 45.1 % (45.5-73.1); Platelet Count Result 216 k/mm3 (150-375); Red Blood Count 5.18 M/mm3 (4.2-5.4); Red Cell Distribution Width 14.2 % (11.5-14.5); White Blood Count 5.2 K/mm3 (4.5-10.0)
[2022-11-09 09:26] LABS: Iron 74 ug/dL (37-170)
[2022-11-09 09:35] LABS: Percent Iron Saturation 21 % (20-50)
[2022-11-09 10:31] LABS: Folic Acid 8.7 ng/mL (2.76->20)
== END 2022-11-09 07:22 | disposition home or self-care (01) ==
LOC: ANHIMG 07:23
PROVIDERS: PCP Internal Medicine; Visit Provider Nurse Practitioner Family
DX: R53.83 Other fatigue (principal); Z79.899 Other long term (current) drug therapy; G43.909 Migraine, unspecified, not intractable, without status migrainosus
CPT/HCPCS: 36415; 70553; 82607; 82746; 83540; 83550; 85025; A9577

== ENCOUNTER 2022-12-29 08:15 | Outpatient (CLI) | payer OTHER, SELFPAY ==
[2022-12-29 08:45] LABS: Alanine Aminotransferase 23 U/L (6-35); Albumin Level 4.4 g/dL (3.5-5.1); Alkaline Phosphatase 88 U/L (38-126); Anion Gap 7 mmol/L (8-16); Aspartate Amino Transferase 22 U/L (14-36); Bilirubin,Total 0.9 mg/dL (0.2-1.3); Blood Urea Nitrogen 12 mg/dL (7-17); Carbon Dioxide 29 mmol/L (22-30); Chloride 105 mmol/L (98-107); Cholesterol 180 mg/dL (0-200); Estimated Glomerular Filt Rate > 60; Glucose 127 mg/dL (65-110); HDL Direct 48 mg/dL; Potassium 4.2 mmol/L (3.4-5.0); Sodium 141 mmol/L (137-145); Triglycerides 118 mg/dL (<150)
[2022-12-29 08:55] LABS: LDL Cholesterol Direct 108 mg/dL
[2022-12-29 09:19] LABS: Vitamin D 25 Hydroxy 25.1 ng/mL
== END 2022-12-29 08:16 | disposition home or self-care (01) ==
LOC: ANHLAB 08:16
PROVIDERS: PCP Family Medicine; Visit Provider Nurse Practitioner Family
DX: E11.65 Type 2 diabetes mellitus with hyperglycemia (principal); E78.5 Hyperlipidemia, unspecified; E55.9 Vitamin D deficiency, unspecified
CPT/HCPCS: 36415; 80053; 80061; 82306; 83036

== ENCOUNTER 2023-02-18 11:52 | Outpatient (CLI) | payer OTHER, SELFPAY ==
[2023-02-18 13:13] LABS: HIV 1/2 Ab P24 Ag Result Negative (Negative)
[2023-02-18 13:18] LABS: Hepatitis B Surface Antigen Negative (Negative)
[2023-02-18 13:35] LABS: Hepatitis C Virus Antibody Negative (Negative)
[2023-02-18 15:20] LABS: Rapid Plasma Reagin Non-Reactive (NonReactive)
== END 2023-02-18 11:53 | disposition home or self-care (01) ==
LOC: ANHLAB 11:53
PROVIDERS: PCP Family Medicine; Visit Provider Obstetrics & Gynecology
DX: Z11.3 Encounter for screening for infections with a predominantly sexual mode of transmission (principal)
CPT/HCPCS: 36415; 86592; 86703; 86803; 87340; G0432

== ENCOUNTER 2023-06-22 07:11 | Outpatient (CLI) | payer OTHER, SELFPAY ==
[2023-06-22 07:54] LABS: Hemoglobin A1C 5.6 % (<5.7)
[2023-06-22 07:55] LABS: Alanine Aminotransferase 20 U/L (6-35); Albumin Level 4.4 g/dL (3.5-5.1); Alkaline Phosphatase 76 U/L (38-126); Anion Gap 5 mmol/L (8-16); Aspartate Amino Transferase 28 U/L (14-36); Bilirubin,Total 0.9 mg/dL (0.2-1.3); Blood Urea Nitrogen 18 mg/dL (7-17); Calcium 9.3 mg/dL (8.4-10.2); Carbon Dioxide 30 mmol/L (22-30); Chloride 103 mmol/L (98-107); Estimated Glomerular Filt Rate > 60; Glucose 95 mg/dL (65-110); Potassium 4.1 mmol/L (3.4-5.0); Sodium 138 mmol/L (137-145)
[2023-06-22 08:10] LABS: Creatinine Urine 101.2 mg/dL
[2023-06-22 08:18] LABS: MALB Creatinine Ratio < 5.9 mg/g (0-30); Microalbumin Urine Random < 6.0 mg/L (0-16.7)
== END 2023-06-22 07:12 | disposition home or self-care (01) ==
LOC: ANHLAB 07:13
PROVIDERS: PCP Nurse Practitioner Family; Visit Provider Nurse Practitioner Family
DX: E87.5 Hyperkalemia (principal); E11.65 Type 2 diabetes mellitus with hyperglycemia
CPT/HCPCS: 36415; 80053; 82043; 83036

== ENCOUNTER 2023-07-16 16:41 | Outpatient (CLI) | payer OTHER, SELFPAY ==
[2023-07-16 17:09] LABS: Appearance Urine Cloudy (Clear); Bacteria Urine 1+ /hpf; Bilirubin Urine Negative (Negative); Blood Urine 3+ (Negative); Color Urine Yellow (Yellow); Glucose Urine UA Negative (Negative); Ketones Urine Negative (Negative); Leukocyte Esterase Ur 1+ LEU/UL (NEGATIVE); Nitrate Urine Positive (Negative); Non Pathogenic Casts 0-2; Protein Urine 2+ mg/dL (Negative); RBC Urine >100 /hpf (0-2); Specific Grav Ur 1.018 (1.001-1.035); Squamous Epithelial Cell Urine Few /hpf (Few); WBC Urine 21-50 /hpf (0-3)
[2023-07-16 17:11] LABS: Add Urine Microscopic? YES
== END 2023-07-16 16:42 | disposition home or self-care (01) ==
LOC: ANHLAB 16:42
PROVIDERS: PCP Nurse Practitioner Family; Visit Provider Nurse Practitioner Family
DX: R39.9 Unspecified symptoms and signs involving the genitourinary system (principal)
CPT/HCPCS: 81001; 87077; 87086; 87186

== ENCOUNTER 2023-12-28 08:30 | Outpatient (CLI) | payer OTHER, SELFPAY ==
[2023-12-28 09:11] LABS: Basophils Absolute Auto 0.1 K/mm3 (0.0-0.1); Basophils Percent Auto 0.9 % (0.2-1.2); Eosinophils Absolute Auto 0.3 K/mm3 (0-0.3); Eosinophils Percent Auto 5.8 % (0-4.4); Hematocrit 44.2 % (37.0-47.0); Hemoglobin 14.1 g/dL (12.0-15.0); Immature Granulocyte Absolute 0.01 K/mm3 (0.00-0.031); Immature Granulocyte Percent A 0.2 % (0-0.5); Lymphocytes Absolute Auto 2.04 K/mm3 (0.9-3.2); Lymphocytes Percent Auto 38.3 % (18.3-44.2); Mean Corpuscular HGB Conc 31.9 g/dl (32-36); Mean Corpuscular Hemoglobin 28.3 pg (26-34); Mean Corpuscular Volume 88.8 fl (80-100); Mean Platelet Volume 10.4 fl (7.4-10.4); Monocytes Absolute Auto 0.5 K/mm3 (0.1-0.6); Monocytes Percent Auto 8.6 % (2.6-8.5); Neutrophils Absolute Auto 2.5 K/mm3 (1.3-6.7); Neutrophils Percent Auto 46.2 % (45.5-73.1); Platelet Count Result 215 k/mm3 (150-375); Red Blood Count 4.98 M/mm3 (4.2-5.4); Red Cell Distribution Width 14.4 % (11.5-14.5); White Blood Count 5.3 K/mm3 (4.5-10.0)
[2023-12-28 09:22] LABS: Cholesterol 187 mg/dL (0-200); HDL Direct 44 mg/dL; Triglycerides 121 mg/dL (<150)
[2023-12-28 09:33] LABS: LDL Cholesterol Direct 118 mg/dL
[2023-12-28 10:13] LABS: Creatinine Urine 183.6 mg/dL
[2023-12-28 10:16] LABS: MALB Creatinine Ratio 4.5 mg/g (0-30); Microalbumin Urine Random 8.3 mg/L (0-16.7)
== END 2023-12-28 08:31 | disposition home or self-care (01) ==
PROVIDERS: PCP Nurse Practitioner Family; Visit Provider Nurse Practitioner Family
DX: E11.9 Type 2 diabetes mellitus without complications (principal); E78.5 Hyperlipidemia, unspecified
CPT/HCPCS: 36415; 80061; 82043; 85025

== ENCOUNTER 2024-01-18 08:13 | Outpatient (CLI) | payer OTHER, SELFPAY ==
[2024-01-18 09:44] LABS: Alanine Aminotransferase 16 U/L (6-35); Albumin Level 4.4 g/dL (3.5-5.1); Alkaline Phosphatase 76 U/L (38-126); Anion Gap 7 mmol/L (4-12); Aspartate Amino Transferase 23 U/L (14-36); Bilirubin,Total 0.9 mg/dL (0.2-1.3); Blood Urea Nitrogen 17 mg/dL (7-17); Calcium 9.3 mg/dL (8.4-10.2); Carbon Dioxide 28 mmol/L (22-30); Chloride 106 mmol/L (98-107); Estimated Glomerular Filt Rate > 60; Glucose 85 mg/dL (65-110); Sodium 141 mmol/L (137-145)
[2024-01-18 11:56] LABS: Hemoglobin A1C 5.4 % (<5.7)
== END 2024-01-18 08:14 | disposition home or self-care (01) ==
PROVIDERS: PCP Nurse Practitioner Family; Visit Provider Nurse Practitioner Family
DX: E78.5 Hyperlipidemia, unspecified (principal); E11.65 Type 2 diabetes mellitus with hyperglycemia; E66.9 Obesity, unspecified
CPT/HCPCS: 36415; 80053; 83036

== ENCOUNTER 2024-06-29 16:30 | Outpatient (CLI) | payer OTHER, SELFPAY ==
[2024-06-29 17:42] LABS: Alanine Aminotransferase 17 U/L (6-35); Albumin Level 4.4 g/dL (3.5-5.1); Alkaline Phosphatase 83 U/L (38-126); Anion Gap 7 mmol/L (4-12); Aspartate Amino Transferase 23 U/L (14-36); Bilirubin,Total 0.7 mg/dL (0.2-1.3); Blood Urea Nitrogen 14 mg/dL (7-17); Carbon Dioxide 27 mmol/L (22-30); Chloride 103 mmol/L (98-107); Estimated Glomerular Filt Rate > 60; Glucose 86 mg/dL (65-110); Potassium 4.3 mmol/L (3.4-5.0); Sodium 137 mmol/L (137-145)
== END 2024-06-29 16:31 | disposition home or self-care (01) ==
LOC: ANHLAB 16:31
PROVIDERS: PCP Nurse Practitioner Family; Visit Provider Nurse Practitioner Family
DX: E11.9 Type 2 diabetes mellitus without complications (principal)
CPT/HCPCS: 36415; 80053

== ENCOUNTER 2024-07-03 03:02 | Day surgery (SDC) | payer OTHER, SELFPAY ==
--- NOTE | 2024-06-27 16:18 | PM.IMHP ---
H&P: HPI History of Present Illness Date/Time: 06/27/24 16:18 Chief Complaint: TOOTIE Narrative: Desires surgical management of TOOTIE Review of Systems Review of Systems: All systems reviewed & are unremarkable except as noted in HPI and below PMFSH Past Medical History Medical History Ascending aorta dilatation 4.0 cm on 12/2017 ct Body mass index (BMI) 35.0-35.9, adult (04/10/17) Cervical spine pain COPD (chronic obstructive pulmonary disease) Diabetes Diastolic dysfunction Dyslipidemia Family history of colon cancer Hyperlipidemia, unspecified Impaired glucose tolerance Left shoulder pain DEBBIE (obstructive sleep apnea) DEBBIE on CPAP Postmenopausal Right shoulder pain Rotator cuff tear, non-traumatic Seasonal allergies Trichomonas vaginalis (TV) infection Trigger finger of left thumb Trigger finger of right thumb Trigger thumb, right thumb Trochanteric bursitis of right hip Surgical History Surgical History H/O shoulder surgery H/O tubal ligation H/O: hysterectomy History of back surgery History of surgical removal of ganglion cyst S/P knee surgery Family History Family History Mother Cerebrovascular accident Family history of cardiovascular disease Sibling Hypertension Family history of elevated blood lipids Family history of diabetes mellitus in first degree relative Father Patient's father is Sibling Carcinoma of colon Sibling Carcinoma of colon Other Diabetes mellitus Social History Social History Smoking status: Never smoker Second hand tobacco smoke exposure: No Alcohol intake: current Alcohol use details: glass of wine occasionally Substance use: current Substance use type: marijuana Other substance usage details: USES MARIJUANA FOR PAIN CONTROL Lack of Transportation: No Lack of Food: Never True Current Housing: I Have Housing Concerned About Future Housing: No Difficulty Paying Gas/Electric Bills: No Difficulty Paying for Meds: YES Currently Unemployed: No Education: Trade/Vocational Certificate Difficulty w/ Childcare or Family Care: No Living arrangements: alone Gender identity (if verbalized by the patient): Female Spiritual care concerns: No Meds Home Medications and Allergies Home Medications Medication Instructions Recorded Confirmed Type cyclobenzaprine 10 mg tablet 10 mg PO TID PRN muscle spasm #20 07/23/22 05/11/24 Rx tabs cholecalciferol (vitamin D3) 25 25 mcg PO DAILY #30 caps 10/26/22 05/11/24 Rx mcg (1,000 unit) capsule fluticasone propionate 50 2 spray intranasal DAILY #48 mL 12/25/23 05/11/24 Rx mcg/actuation nasal spray,suspension (Flonase Allergy Relief) albuterol sulfate 90 mcg/actuation 2 inh inhalation Q6H PRN shortness 04/08/24 05/11/24 Rx aerosol inhaler (Proventil HFA) of breath or wheezing #8.5 grams budesonide-formoterol HFA 160 2 puff inhalation Q12H #10.2 grams 04/08/24 05/11/24 Rx mcg-4.5 mcg/actuation aerosol inhaler (Symbicort) semaglutide 2 mg/dose (8 mg/3 mL) 2 mg (0.75 mL) subcut WEEKLY #9 mL 06/02/24 Rx subcutaneous pen injector (Ozempic) Allergies Allergy/AdvReac Type Severity Reaction Status Date / Time coconut Allergy Unknown Hives Verified 05/11/24 11:11 tramadol AdvReac Severe hallucinati Verified 05/11/24 11:11 ons Exam Narrative: + urethral mobility Assessment and Plan Assessment and plan (1) TOOTIE (stress urinary incontinence, female): Code(s): N39.3 - Stress incontinence (female) (male) Status: Acute Assessment and Plan: urethral sling
[2024-06-29 09:15] VITALS: BMI 30.2
--- NOTE | 2024-06-29 09:21 | PC.NURSE ---
Report to the Outpatient Waiting Room, entrance under the green pavilion located off [facility], at time _1200_ on date _[id number]_. Planned Procedure Time: _2pm_.? Time changes happen often and if your time is changed the preop area will call you the afternoon before. - You and your visitor will be asked to self-screen and do not enter if you have any COVID symptoms. Please call surgeon if you need to reschedule. - A mask is optional within the hospital at this time. Patients may have clear liquids (water, carbonated beverages, clear teas, apple juice) until 3 hours prior to surgery with a maximum of 20 ounces. - No food from midnight until time of surgery and no smoking Take only the following medications with a SIP of water on the morning of surgery: ___Symbicort and if needed Albuterol____ DO NOT STOP ANY OF YOUR OTHER PRESCRIPTION MEDICATIONS PRIOR TO SURGERY EXCEPT THE FOLLOWING Medications to discontinue per physician ____Vitamin D3 Date to take last nczp__[id number] Xzeukjn is planning to not take Ozempic on this week. Please no make-up, nail frisian, hairspray, perfume, deodorant, or body powder the day of surgery.? No jewelry (including any body piercings) or valuables the day of surgery, leave them at home.? Please take a shower or bath the night before, or the morning of, surgery with an antibacterial soap.? Wear comfortable, loose fitting clothing.? - Jewelry must be removed prior to entering the operating room.? Rings and piercings that are not removed may be cut off. - The hospital will not accept responsibility for valuables.? - Please leave all valuables, including medications, at home the day of surgery. If you are going home after surgery, a licensed cdl b driver must drive you home.? - NO public transportation without another adult if you receive anesthesia. - We recommend that an adult stay with you for 24 hours following discharge. - We also recommend that you do not drive, make important decision, drink alcoholic beverages, or take any drugs that were not prescribed by your health care provider for at least 24 hours after your discharge time. Follow any additional instructions given to you from your surgeon. Telephone instructions given to _Gely__and asked if any additional questions and then verbalized understanding. Patient advised to call surgeon office or pre surgery nurse liaison [phone] if any additional questions.
[2024-07-03] VITALS (11 sets, daily range): BP systolic 89–154; BP diastolic 64–97; PULSE 65–99; RESP 12–16; TEMP 36.3–36.5; O2SAT 98–100
--- NOTE | 2024-07-03 04:48 | WPDHPUPDATE1 ---
History and Physical Update Update Date/Time: 07/03/24 04:48 History and Physical has been reviewed, including an updated exam of the patient. There are NO changes in the patient's condition. Risks, benefits, and alternatives have been discussed and questions answered. Patient agrees to proceed with procedure.
[2024-07-03 08:16] LABS: Glucose Point of Care 86 mg/dl (65-105)
[2024-07-03] MEDS: LACTATED RINGERS 1,000 ML 30 ML IV CONT ×2 (09:00→10:36)
--- NOTE | 2024-07-03 09:08 | WPDANESEPPF ---
Anes - Initial Pre Proc Eval Procedure: Operation Date: 07/03/24 09:45 Proposed Procedures p Urethral Sling - Jhonny Hayden MD Date/Time: 07/03/24 09:08 Surgeon: Jhonny Hayden MD Pre Op Diagnosis: stress incont Patient Data Age: 64 Gender: F Height: 1.88 m Weight: 107.6 kg Last Vital Signs Temp 36.3 C L 07/03/24 08:15 Pulse 99 07/03/24 08:15 Resp 14 07/03/24 08:15 BP 128/89 07/03/24 08:15 Pulse Ox 100 07/03/24 08:15 O2 Del Method Room Air 07/03/24 08:15 Allergies Allergy/AdvReac Type Severity Reaction Status Date / Time coconut Allergy Unknown Hives Verified 07/03/24 08:24 tramadol AdvReac Severe hallucinati Verified 07/03/24 08:24 ons Home Medications Medication Instructions Recorded Confirmed Type cyclobenzaprine 10 mg tablet 10 mg PO TID PRN muscle spasm #20 07/23/22 06/30/24 Rx tabs fluticasone propionate 50 2 spray intranasal DAILY #48 mL 12/25/23 06/30/24 Rx mcg/actuation nasal spray,suspension (Flonase Allergy Relief) albuterol sulfate 90 mcg/actuation 2 inh inhalation Q6H PRN shortness 04/08/24 06/30/24 Rx aerosol inhaler (Proventil HFA) of breath or wheezing #8.5 grams budesonide-formoterol HFA 160 2 puff inhalation Q12H #10.2 grams 04/08/24 06/30/24 Rx mcg-4.5 mcg/actuation aerosol inhaler (Symbicort) semaglutide 2 mg/dose (8 mg/3 mL) 2 mg (0.75 mL) subcut WEEKLY #9 mL 06/02/24 06/30/24 Rx subcutaneous pen injector (Ozempic) Laboratory Tests 07/03/24 08:14 POC Capillary Glucose 86 mg/dl (65-105) Patient hx anesthesia problems: none Family hx anesthesia problems: none Results Review: All pre-operative results and documents have been reviewed as part of the pre-operative evaluation. [facility] Past Medical History Medical History Ascending aorta dilatation 4.0 cm on 12/2017 ct Body mass index (BMI) 35.0-35.9, adult (04/10/17) Cervical spine pain COPD (chronic obstructive pulmonary disease) Diabetes Diastolic dysfunction Dyslipidemia Family history of colon cancer Hyperlipidemia, unspecified Impaired glucose tolerance Left shoulder pain DEBBIE (obstructive sleep apnea) DEBBIE on CPAP Postmenopausal Right shoulder pain Rotator cuff tear, non-traumatic Seasonal allergies Trichomonas vaginalis (TV) infection Trigger finger of left thumb Trigger finger of right thumb Trigger thumb, right thumb Trochanteric bursitis of right hip Surgical History Surgical History H/O shoulder surgery H/O tubal ligation H/O: hysterectomy History of back surgery History of surgical removal of ganglion cyst S/P knee surgery Family History Family History Mother Cerebrovascular accident Family history of cardiovascular disease Sibling Hypertension Family history of elevated blood lipids Family history of diabetes mellitus in first degree relative Father Patient's father is Sibling Carcinoma of colon Sibling Carcinoma of colon Other Diabetes mellitus Social History Social History Smoking status: Never smoker Second hand tobacco smoke exposure: No Alcohol intake: current Alcohol use details: glass of wine occasionally Substance use: current Substance use type: marijuana Other substance usage details: for sleep Do You Feel Safe in your Home?: Yes Lack of Transportation: No Lack of Food: Never True Current Housing: I Have Housing Concerned About Future Housing: No Difficulty Paying Gas/Electric Bills: No Difficulty Paying for Meds: YES Currently Unemployed: No Education: Trade/Vocational Certificate Difficulty w/ Childcare or Family Care: No Living arrangements: with family Occupation/Education: occupation Gender identity (if verbalized by the patient): Female Spiritual care concerns: No Agree to blood products: Yes Anes - Eval Final PreProcedure Day of Procedure 07/03/24 09:08 Patient weight: obese Heart: regular rate and rhythm Lungs: clear to auscultation Airway: Mallampati scale class II Neurological: alert and oriented Last oral intake: >/= 8 hours ASA classification: III Emergent: no Anesthetic plan: proceed Anesthesia type and monitoring: general LMA and standard monitoring Results Review: All pre-operative results and documents have been reviewed as part of the pre-operative evaluation. Informed Consent: The patient's anesthetic plan and its attendant risks and benefits were discussed with the patient/family/POA. Questions were solicited and answers provided to the satisfaction of the patient/family/POA.
[2024-07-03] MEDS: ceFAZolin 2 GM/D5W 50 ML 2 GM/50 ML BAG IVPB (09:50)
[2024-07-03] MEDS: BUPIVACAINE/EPINEPHRINE 0.5% 50 ML VIAL 10 ML INFILTRATE (09:54)
--- NOTE | 2024-07-03 10:06 | W.PM.PROC2 ---
Procedure Note - Detailed Date of Procedure 07/03/24 Pre-op Diagnosis stress incontinence Post-op Diagnosis Same Procedure Performed mid urethral sling cystoscopy Surgeon Jhonny Hayden MD Anesthesia General Indications This is a female with confirm stress urinary incontinence. She desires surgical correction. She understands the risks of bleeding, infection, injury to the urinary tract, vaginal mesh extrusion, urinary tract mesh erosion, obstructive voiding requiring a secondary procedure, hip and leg pain, dyspareunia, inability to improve overactive bladder symptoms. She agrees to proceed. Description of Procedure She was correctly identified. Informed consent obtained. She was brought the operating room. She was given appropriate anesthesia. They used an LMA type anesthesia. She was given appropriate perioperative antibiotics. A time-out performed. I marked out the site of the inner thigh incisions. I anesthetized the skin and made those incisions. I hydrodissected the anterior vaginal wall with local mixed with epinephrine. 10 cc total was used. I did this over the site of the mid urethra. I made a 1 cm incision. I dissected out laterally taking great care not to injure the refilled vaginal wall. I passed the helical trocars. First on the left. Then on the right. I did this from the thigh incision towards the vaginal incision. The sling was connected to the trocars and brought out through the thigh incision. I tensioned the sling appropriately. I cut and the plastic sheaths. I then closed the incision with 2 0 Vicryl I did this in a running fashion. No vaginal packing or estrogen was used On cystoscopy there is no tumors or surgical artifact. There was no surgical artifact in the urethra. I cut the excess sling material. Close incisions with glue. She was awakened and transferred to the PACU in stable condition. Start time 9:46 a.m. Tensioning time 9:54 a.m. Stop time 10:01 a.m. Time to 1st void at 11:25 a.m. Implants Urethral sling Drains No Packing No Pathology None sent Complications No immediate complications Condition Stable Disposition PACU
[2024-07-03 10:51] LABS: Glucose Point of Care 113 mg/dl (65-105)
[2024-07-03] MEDS: oxyCODONE HCL (*CRX) 5 MG TAB IR PO (11:55)
== END 2024-07-03 12:25 | disposition home or self-care (01) ==
PROVIDERS: PCP Nurse Practitioner Family; Visit Provider Urology
PROC: (CPT 57288; principal; 2024-07-03 09:45)
DX: N39.3 Stress incontinence (female) (male) (principal); J44.9 Chronic obstructive pulmonary disease, unspecified; Z79.51 Long term (current) use of inhaled steroids; Z79.85 Long-term (current) use of injectable non-insulin antidiabetic drugs; F12.90 Cannabis use, unspecified, uncomplicated; E66.9 Obesity, unspecified; Z68.30 Body mass index [BMI] 30.0-30.9, adult
CPT/HCPCS: 57288; 82948; A9270; C1771; J0690; J2250; J2371; J2405; J2704; J3010; J7030; J7120

== ENCOUNTER 2025-02-10 09:58 | Outpatient (CLI) | payer OTHER, SELFPAY ==
--- OUTSIDE RECORDS SUMMARY | 2025-02-10 11:18 | XMS_ITS | Data Portability ---
Author Organization [facility] Address [address] [place] [address] Care Team Providers Care Foundry Patternmaker Name Role Phone NALINI CURRIE Primary Care Provider [phone] LEE LEWIS Primary Care Provider Unavailabl e Assessment Encounter Date Assessment Date Assessment LastModified by Organization Details LastModified Time 10/07/2024 10/07/2024 Patient to begin stretching, icing, supportive shoes. Prescribed physical therapy X-rays three views left foot Return to clinic 6 weeks Not available 10/07/2024 16:31:14 11/18/2024 11/18/2024 Patient to cont stretching, icing, supportive shoes. Rx night splint Rx diclofenac gel to be applied to area of concern qid Return to clinic 6 weeks Not available 11/23/2024 14:40:45 01/04/2025 01/04/2025 Patient to cont stretching, icing, supportive shoes. continue night splint until pain reaches 0/10, call the office with acute issues RTC prn Not available 01/04/2025 16:11:48 Plan of Treatment Reminders Order Date Submit Date Provider Last Modified By Organization Details Last Modified Time Details Appointments None recorded. Lab None recorded. Referral physical therapist referral 2024 025 [facility], [address], [place], [address], 14:34:45 Procedures None recorded. Surgeries None recorded. Imaging XR, foot, 3 or more view 2024 025 [facility] ([facility] [address] [place], [address], 10:32:13 Medication Orders diclofenac 1 % topical gel 2024 025 [id number], [address], [place], [place], [id number], 16:36:10 Patient TargetsNo targets recorded. Patient Instructions Encounter Date Encounter Id Patient Instructions Last Modified By Organization Details Last Modified Time 11/21/2023 [id number] presbyopia: care instructions msafi Not available 11/21/2023 15:55:22 astigmatism: car e instructions msafi Not available 11/21/2023 15:55:23 type 2 diabetes: care instructions msafi Not available 11/21/2023 15:55:23 Reason for Referral Physical Therapist Referral for Plantar fasciitis plantar fasciitis Referring Physician: Gurpreet Cardenas [facility]iat[facility], Encounter Date: 10/07/2024 Results Created Date Observation Date Name Description Value Unit Range Abnormal Flag Note LastModifiedBy Organization Detail LastModifiedTime 10/08/1910/07/2024 XR, foot, 3 or more view No observ ation record ed. [facility] [address] [place], [address], 10/14/2024 11:08:42 Result Notes None recorded. Problems No Known Problems Medical Equipment None Reported. Allergies Allergen ID Allergen Name Allergen Category Reaction Reaction Severity Criticality Documentation Date Start Date Code Code System Note Provider Name and Address Organization Details Recorded Time [id number] tramadol medicatio n Not available Not available Not available 10/07/2024 57389 RxNorm Winnie Sommer LPN null, [place] - [facility] 16:18:26 Medications Name Sig Start Date Stop Date Status Note LastModified by Organization Details LastModified Time cyclobenzap rine 10 mg tablet TAKE 1 TABLET BY MOUTH THREE TIMES DAILY NEEDED FOR MUSCLE SPASM 10/07 completed Not Available Not Available Not Available metformin 500 mg tablet TAKE 2 TABLETS BY MOUTH DAILY 10/07 completed Not Available Not Available Not Available atorvastati n 20 mg tablet TAKE 1 TABLET BY MOUTH DAILY 10/07 completed Not Available Not Available Not Available triamcinolo ne acetonide 0.5 % topical cream DRISS EXT AA BID PRF IRRITATIO N active Not Available Not Available No t Available azithromyci n 250 mg tablet TK 2 TS PO ON DAY 1, THEN TK 1 T PO D FOR 4 DAYS 10/07 completed Not Available Not Available Not Available fluconazole 150 mg tablet TAKE 1 TABLET BY MOUTH 1 TIME. MAY REPEAT IN 72 HOURS IF STILL HAVING SYMPTOMS 10/07 completed Not Available Not Available Not Available benzonatate 200 mg capsule TAKE 1 CAPSULE BY MOUTH THREE TIMES DAILY NEEDED FOR COUGH 10/07 completed Not Available Not Available Not Available hydrocodone 5 mg-acetamin ophen 325 mg tablet TAKE 1 TABLET BY MOUTH EVERY 6 HOURS NEEDED FOR PAIN 10/07 completed Not Available Not Available Not Available phenazopyri dine 200 mg tablet TAKE ONE Tablet BY MOUTH THREE TIMES DAILY NEEDED FOR UP TO SIX doses 10/07 completed Not Available Not Available Not Available prednisone 20 mg tablet TAKE 2 TABLETS BY MOUTH DAILY 10/07 completed Not Available Not Available Not Available Accu-Chek Softclix Lancets USE DIRECTED TWICE DAILY active Not Available Not Available No t Available sulfamethox azole 800 mg-trimetho prim 160 mg tablet TAKE 1 TABLET BY MOUTH EVERY 12 HOURS 10/07 completed Not Available Not Available Not Available meclizine 25 mg tablet TAKE 1 TABLET BY MOUTH THREE TIMES DAILY NEEDED FOR DIZZINESS 10/07 completed Not Available Not Available Not Available cephalexin 500 mg capsule TAKE ONE Capsule BY MOUTH EVERY EIGHT HOURS FOR 7 DAYS 10/07 completed Not Available Not Available Not Available oxycodone-a cetaminophe n 7.5 mg-325 mg tablet TAKE 1 TABLET BY MOUTH EVERY 6 HOURS NEEDED FOR PAIN 10/07 completed Not Available Not Available Not Available albuterol sulfate HFA 90 mcg/actuati on aerosol inhaler INHALE 2 PUFFS EVERY 6 HOURS NEEDED SHORTNESS OF BREATH active Not Available Not Available No t Available fluticasone propionate 50 mcg/actuati on nasal spray,suspe nsion SHAKE LIQUID AND USE 2 SPRAYS IN EACH NOSTRIL DAILY active Not Available Not Available No t Available amoxicillin 875 mg-pottrippiu m clavulanate 125 mg tablet TAKE 1 TABLET BY MOUTH TWICE DAILY 10/07 completed Not Available Not Available Not Available eszopiclone 2 mg tablet TAKE 1 TABLET BY MOUTH EVERY NIGHT AT BEDTIME FOR 15 DAYS DIRECTED 10/07 completed Not Available Not Available Not Available diclofenac 1 % topical gel APPLY 2 GRAMS TOPICALLY TO THE AFFECTED AREA FOUR TIMES DAILY active Not Available Not Available No t Available Accu-Chek Vivi Plus test strips USE TO CHECK BLOOD SUGAR TWICE DAILY active Not Available Not Available No t Available Accu-Chek Guide Me Glucose Meter DIRECTED active Not Available Not Available No t Available Rybelsus 7 mg tablet TAKE 1 TABLET BY MOUTH DAILY 10/07 completed Not Available Not Available Not Available Rybelsus 3 mg tablet TAKE 1 TABLET BY MOUTH DAILY 10/07 completed Not Available Not Available Not Available Ozempic 1 mg/dose (4 mg/3 mL) subcutaneou s pen injector INJECT 1 MG UNDER THE SKIN ONE DAY A WEEK 10/07 completed Not Available Not Available Not Available Ozempic 2 mg/dose (8 mg/3 mL) subcutaneou s pen injector ADMINISTE R 2 MG UNDER THE SKIN WEEKLY active Not Available Not Available No t Available Ozempic 0.25 mg or 0.5 mg (2 mg/3 mL) subcutaneou s pen injector INJECT 0.5MG UNDER THE SKIN WEEKLY FOR 4 WEEKS 10/07 completed Not Available Not Available Not Available Vitals Date Recorded Body height Body mass index (BMI) Body weight Heart rate Body temperature Systolic blood pressure Diastolic blood pressure Provider Name and Address Organization Details Last Updated DateTime 5 187.96 cm 30.4 kg/m2 760891. 95 g 91 /min 95.9 [degF] 157 mm[Hg] 88 mm[Hg] Winnie Sommer LPN [place] - [facility] 5 16:17:50 Date Recorded Body height Body temperature Heart rate Body mass index (BMI) Body weight Systolic blood pressure Diastolic blood pressure Provider Name and Address Organization Details Last Updated DateTime 3 187.96 cm 96.9 [degF] 86 /min 33.8 kg/m2 171178. 23 g 140 mm[Hg] 80 mm[Hg] Haylee Sandor [facility] 3 16:17:36 Date Recorded Body height Body mass index (BMI) Body weight Body temperature Heart rate Systolic blood pressure Diastolic blood pressure Provider Name and Address Organization Details Last Updated DateTime 5 187.96 cm 31.4 kg/m2 630317. 26 g 98.6 [degF] 99 /min 136 mm[Hg] 85 mm[Hg] Wily Keith MA [facility] 5 16:06:36 Date Recorded Body temperature Body weight Heart rate Body mass index (BMI) Body height Systolic blood pressure Diastolic blood pressure Provider Name and Address Organization Details Last Updated DateTime 4 96.9 [degF] 321315. 69 g 92 /min 31.4 kg/m2 187.96 cm 142 mm[Hg] 89 mm[Hg] Carmelita Walton MA [facility] 4 15:33:03 Date Recorded Body height Body mass index (BMI) Body weight Heart rate Systolic blood pressure Diastolic blood pressure Provider Name and Address Organization Details Last Updated DateTime 5 187.96 cm 32.3 kg/m2 180817. 4 g 89 /min 174 mm[Hg] 95 mm[Hg] Saumya Romo MA [facility] 5 16:05:04 Social History Question Answer Notes LastModified by Organizat ion Details LastModified Time Tobacco Smoking Status Never Smoker [facility] 03/29/2021 16:10:28 Do You Have An Advance Directive? No Information n ot available 03/29/2021 In The 14 Days Before Symptom Onset, Have You Had Close Contact With A Laboratory-confirm ed COVID-19 While That Case Was Ill? No Information n ot available 03/29/2021 In The 14 Days Before Symptom Onset, Have You Had Close Contact With A Person Who Is Under Investigation For COVID-19 While That Person Was Ill? No Information not available 03/29/2021 Have You Been To An Area Known To Be High Risk For COVID-19? No Information not available 03/29/2021 What Is The Highest Grade Or Level Of School You Have Completed Or The Highest Degree You Have Received? [id number] Information not available 03/29/2021 Do You Have A Medical Power Of Grade Checker? No Information not available 03/29/2021 What Was The Date Of Your Most Recent Tobacco Screening? 01/04/2025 atatema Information not available 01/04/2025 What Is Your Relationship Status? Information not available 10/07/2024 Sex: Female Functional Status Question Answer Note LastModified by Organizat ion Details LastModified Time Do you use any illicit or recreational drugs? No Information not available 10/07/2024 What is your level of alcohol consumption? Occasional Information not available 10/07/2024 Are you currently employed? Yes Information not available 03/29/2021 Mental Status None recorded. Family History Nothing Reported. Medical History No medical history recorded. Gynecological HistoryNo gynecological history recorded. Obstetrics History GPAL:G 0 P 0 0 0 0 Immunizations Vaccine Type Date Status Note Provider Nam e and Address Organization Details Recorded Time COVID-19, mRNA, LNP-S, PF, 100 mcg/0.5mL dose or 50 mcg/0.25mL dose 11/26/2020 completed Missy Ramos RN null, [place] [facility] 11/26/2020 11:18:19 COVID-19, mRNA, LNP-S, PF, 100 mcg/0.5mL dose or 50 mcg/0.25mL dose 12/24/2020 completed Luz Pendleton MA null, [place] - [facility] 12/24/2020 12:10:13 Past Encounters Encounter ID Performer Location Encounter Start Date Encounter Closed Date Diagnosis/Indication Diagnosis SNOMED-CT Code Diagnosis ICD10 Code Diagnosis Note [id number] Tate Pulido MD [facility] (Adult Med) [address] [place] [address] 11/26/2020 10:49:46 12/02/2020 12:05:49 Administration of SARS-CoV-2 antigen vaccine 538204231 Z23 [id number] Tate Pulido MD [facility] (Adult Med) [address] [place] [address] 12/24/2020 10:33:47 12/27/2020 11:10:13 Administration of SARS-CoV-2 antigen vaccine 726674957 Z23 [id number] Pritesh Piedra MD [facility] [address] [place] [address] 03/29/2021 15:46:24 04/05/2021 10:21:30 Tear film insufficiency of bilateral eyes 2243811510 73122 H04.123 Presbyopia 36638457 H52. 4 [id number] Pritesh Piedra MD [facility] [address] [place] [address] 06/05/2022 15:53:50 06/06/2022 07:36:46 Presbyopia 18614365 H52.4 Type 2 nadja betes mellitus without complication 769236456 E11.9 Suspected glaucoma of right eye 6017343620 7185378 H40.982 [id number] Pritesh Piedra MD [facility] [address] [place] [address] 10/08/2022 15:59:23 10/12/2022 07:30:51 Glaucoma suspect 063990368 H40.210 [id number] Pritesh Piedra MD [facility] [address] [place] [address] 11/21/2023 15:20:01 11/22/2023 09:44:35 Presbyopia 49813950 H52.4 Type 2 nadja betes mellitus without complication 953302382 E11.9 Suspected glaucoma of right eye 5978408475 5456270 H40.001 Regular astigmatism 6890 5002 H52.757 [id number] [place] Ronald DPM [facility] [address] [place] [address] 10/07/2024 16:08:45 10/08/2024 08:52:27 Plantar fasciitis 407442835 M72.2 [id number] Aditya Ronald DPM [facility] [address] [place] [address] 11/18/2024 15:58:45 11/23/2024 15:05:46 Plantar fasciitis 583023998 M72.2 [id number] Aditya Cardenas [facility] [address] [place] [address] 01/04/2025 15:32:54 01/07/2025 08:42:50 Plantar fasciitis 087712467 M72.2 Health Concerns Section Related Observation LastModified by Organization Detai ls LastModified Time None Recorded Concern Status LastModified by Organization Details LastModified Time None Recorded Advance Directives Directive N: Payers Encounter Date Sequence Insurance Name Policy Number Policy Meza Covered Member ID Meza Member ID Guarantor Name 10/08/2022 1 [employer] - ALLIED BENEFITS - OPEN ACCESS [id number] Gely Edward [id number] Gely Edward 11/21/2023 1 [employer] - ALLIED BENEFITS - OPEN ACCESS [id number] Gely Edward [id number] Gely Edward 10/07/2024 1 [employer] - ALLIED BENEFITS - OPEN ACCESS [id number] Gely Edward [id number] Gely Edward 11/18/2024 1 [employer] - ALLIED BENEFITS - OPEN ACCESS [id number] Gely Deward [id number] Gely Edward 01/04/2025 1 [employer] - ALLIED BENEFITS - OPEN ACCESS [id number] Gely Edward [id number] Gely Edward Notes Date Note Type Note Provider Name and Address Organization Details Recorded Time 10/08/2022 text/html F/U OHTN in OD after steroid shot in her knee, She gets every 12-18 months.NO comp. now Pritesh Piedra MD [address] [place], [address], [place] [facility] 10/11/2022 13:34:23 11/21/2023 text/html Diabetic since a few years, recently changed fro Metformin to Ozmpic Pritesh Piedra MD [address] [place], [address], [facility] 11/21/2023 16:05:14 10/07/2024 text/html Patient presents to clinic for pain to the bottom of the left heel. Pain is worse with 1st step out of bed in the morning. Patient relates a sharp shooting pain in the bottom of the heel [place] DPM [address], [place], [address], [facility] 10/07/2024 16:31:28 11/18/2024 text/html Patient returns to clinic for pain to the bottom of the left heel. Pain is worse with 1st step out of bed in the morning. Patient relates a sharp shooting pain in the bottom of the heel Aditya Millano DPM [address], [place], [address], [facility] - [facility] 11/23/2024 14:40:59 01/04/2025 text/html Patient returns to clinic for pain to the bottom of the left heel. Pain is much better now, even with 1st step out of bed in the morning. [place] Ronald DPM [address], [place], [address], [facility] 01/04/2025 16:12:00 OBGyn Episode No OBEpisode recorded.
--- NOTE | 2025-02-23 17:19 | WPDHOMESLEEP ---
Sleep Study - Home Unattended Date of Study: 02/10/25 Ordering Provider: MILAGRO Cui Interpreting Provider: Rosangela Potts MD Home Sleep Study Type: Watch PAT Height: 1.88 m Weight: 111.13 kg Body Mass Index: 31.4 Neck Circumference (inches): 16 [place]: 6 Reason for Sleep Study Insomnia; obstructive sleep apnea, has been off CPAP due to the mold in her last apartment making her sick. * 10/06/21 - CPAP 8 cm using a large AirFit P 30 i mask and heated humidity was recommended. Central apneas were controlled at this setting and sleep efficiency was acceptable. She had an increased number of isolated limb movements during this study, limb movement index is 36.1. * 08/28/21 - Home sleep test - AHI of 16.2 and a central apnea index of 7.4. The central apnea index is elevated (normal is <5). Echocardiogram and PAP titration recommended. * 04/06/2018 split night; AHI 20.3, lowest saturation 81%, limb movements 65.4, Optimal pressure 7 cm with good response to therapy, prolonged REM. Sleep efficiency 87%. * 02/27/2018 mild DEBBIE, AHI 13.3, bncf-cq-nxerkelv snoring, lowest saturation 80% Sleep History Gely Leon is a 64-year-old woman who has a history of insomnia for years. She also has known obstructive sleep apnea, please see prior sleep study list above. She has not been on CPAP recently due to black mold found in her basement. She does not like to take medications, would like to fall asleep naturally. She has tried several medications however these make it very difficult for her to wake up or cause her to have too little sleep. The lack of sleep affects her cognition and energy. She with this sleep for 6-7 hours restfully. This problem is severe and has been going on for several years. She does not awaken from sleep feeling short of breath nor does she awaken at night with heartburn, belching or coughing. She rarely snores, never loudly enough that others complain. She occasionally has difficulty sleeping when she has a cold. She does not wake up gasping for breath at night. She rarely has breathing problems at night observed by others. She occasionally sweats excessively at night. She does not notice her heart pounding or beating irregularly at night. She rarely falls asleep during the day, never falls asleep involuntarily, never falls asleep while driving. She does not have loss of muscle tone with strong emotion. She occasionally has daytime difficulties due to excessive sleepiness. She is now retired, worked in billing. She does not feel paralyzed on waking or falling asleep. She does not have vivid dreamlike scenes upon awakening or falling asleep. She does not feel afraid to go to sleep. She does not have nightmares. She rarely remembers her dreams. She constantly has racing thoughts. She does not feel sad, depressed, or anxious. She rarely has muscular tension. She rarely notices parts of her body jerking. She does not kick at night. She does not have crawling or aching feelings in her legs. She occasionally has leg pain at night. She does not have morning jaw pain. She does not grind her teeth during sleep. She rarely is bothered by pain during the day, rarely awakened by pain at night. She rarely wakes up feeling stiff in the morning with sore or achy muscles. She occasionally wakes up with pain in the neck and spine. She has memory problems and concentration difficulties as well as fatigue. Normal bedtime is 11:00 p.m. falling asleep within 30-45 minutes waking 2-3 times at night with tossing and turning. While awake she may watch television. On average she is not sure how long it takes her to get back to sleep because she is watching television as a distraction. She wakes at 2 in the morning. She keeps a similar schedule on weekends. She stays in bed until 5:00 a.m. when the alarm goes off. She estimates getting 4-5 hours of sleep most nights. She does not take naps in the afternoon or evening. A short nap lasting 10-15 minutes is not refreshing. She feels tired all the time. She feels better in the afternoon compared to other times of day. Habits: Tobacco: Never smoker Caffeine: she uses caffeine, amount is not known Alcohol: 2 glasses a month, does not always help with sleep Recreational: Marijuana, does not always help her get to sleep, either PMFSH Past Medical History Medical History Trochanteric bursitis of right hip Left shoulder pain Cervical spine pain Right shoulder pain Rotator cuff tear, non-traumatic Trichomonas vaginalis (TV) infection Postmenopausal Trigger finger of left thumb COPD (chronic obstructive pulmonary disease) Ascending aorta dilatation 4.0 cm on 12/2017 ct Body mass index (BMI) 35.0-35.9, adult (04/10/17) Diastolic dysfunction Dyslipidemia Impaired glucose tolerance DEBBIE on CPAP Trigger thumb, right thumb Trigger finger of right thumb DEBBIE (obstructive sleep apnea) Family history of colon cancer Hyperlipidemia, unspecified Seasonal allergies Diabetes Surgical History Surgical History S/P knee surgery History of back surgery History of surgical removal of ganglion cyst H/O shoulder surgery H/O tubal ligation H/O: hysterectomy Family History Family History Mother Cerebrovascular accident Family history of cardiovascular disease Sibling Hypertension Family history of elevated blood lipids Family history of diabetes mellitus in first degree relative Father Patient's father is Sibling Carcinoma of colon Sibling Carcinoma of colon Other Diabetes mellitus Social History Social History Smoking status: Never smoker Second hand tobacco smoke exposure: No Alcohol intake: current Alcohol use details: glass of wine occasionally Substance use: current Substance use type: marijuana Other substance usage details: for sleep Do You Feel Safe in your Home?: Yes Lack of Transportation: No Lack of Food: Never True Current Housing: I Have Housing Concerned About Future Housing: No Difficulty Paying Gas/Electric Bills: No Difficulty Paying for Meds: YES Currently Unemployed: No Education: Trade/Vocational Certificate Difficulty w/ Childcare or Family Care: No Living arrangements: with family Occupation/Education: occupation Gender identity (if verbalized by the patient): Female Spiritual care concerns: No Agree to blood products: Yes Medications Home Medications ?Medication ?Instructions ?Recorded ?Confirmed ?Type albuterol sulfate 90 mcg/actuation 2 inh inhalation Q6H PRN shortness 04/08/24 12/08/24 Rx aerosol inhaler (Proventil HFA) of breath or wheezing #8.5 grams budesonide-formoterol HFA 160 2 puff inhalation Q12H #10.2 grams 04/08/24 12/08/24 Rx mcg-4.5 mcg/actuation aerosol inhaler (Symbicort) tirzepatide 2.5 mg/0.5 mL 2.5 mg/0.5 mL Pen Injector#2 12/08/24 12/08/24 Sample subcutaneous pen injector Samples (Mounjaro) tirzepatide 5 mg/0.5 mL 5 mg (0.5 mL) subcut WEEKLY #2 mL 12/31/24 Rx subcutaneous pen injector (Mounjaro) azithromycin 250 mg tablet See Rx Instructions PO .COMPLEX #6 01/07/25 Rx tabs benzonatate 200 mg capsule 200 mg PO TID PRN cough #30 caps 01/07/25 Rx semaglutide 2 mg/dose (8 mg/3 mL) 2 mg (0.75 mL) subcut WEEKLY #3 mL 01/22/25 Rx subcutaneous pen injector (Ozempic) Sleep Procedure The sleep study was completed using [employer] SolutionsT a technically adequate device with seven channels: peripheral arterial tone, actigraphy, body position, snore, respiratory movement, pulse oximetry, sleep staging, and heart rate. Prior to using the device, the patient received verbal and written instructions for its application and was provided with the help desk phone number for additional telephonic instruction with 24-hour availability of qualified personnel to answer questions. Sleep Architecture The total recording time is 7 hrs, 41 min. The total sleep time is 6 hrs, 15 min. Sleep latency is 28 minutes. REM latency is 163 minutes. The patient had 17 episodes of waking. Sleep architecture shows 19.2% deep sleep, 59.3% light sleep, and 21.5% stage REM. The patient spent 8.9% of total sleep time in the supine position. Sleep efficiency was 81%. Respiratory Analysis The overall AHI (pAHI 3%:) is 34.0. The central AHI is 4.3. The AHI was 30.5 in NREM and 46.6 in REM sleep. The AHI was 62.8 in Supine and 31.2 in Non-supine sleep. Percent of Con Robbins respirations is 0%. Oximetry Data The oxygen desaturation index (JUAN M 4%:) is 22.2. The mean saturation is 92%, and the lowest saturation is 79%. Time spent with saturation < 88% is 2.0 minutes. Snoring Profile Snoring average intensity is 41 dB. The patient snored above 45 decibels for 24.6 minutes, 6.6% of sleep time. Cardiac Profile The average pulse rate is 85 beats per minutes. The lowest pulse rate is 65 bpm. The highest pulse rate reported is 108 bpm. Cardiac rhythm analysis in sleep does not show atrial fibrillation. Assessment and Plan Assessment and Plan (1) DEBBIE (obstructive sleep apnea): Code(s): G47.33 - Obstructive sleep apnea (adult) (pediatric) Status: Acute Assessment and Plan: This home sleep test using WatchPat on 02/10/2025 shows severe obstructive sleep apnea, the apnea-hypopnea index using 3% criteria is 34 with desaturation to 79% and 2 minutes spent below 88%. Events were much worse in the supine position, supine AHI is 62.8, the REM AHI is 46.6. She has no Con-Robbins respiration. The central AHI is 4.3. She is a candidate for PAP therapy, ideally a CPAP titration although APAP is an option. I recommend that this patient be prescribed Resmed AirSense 11 AutoPAP 5-15 cm H2O, CPAP mask/filters/tubing and humidifier chamber. This should be used with all episodes of sleep. Compliance should be reviewed within 31-90 days of starting therapy for usage greater than 4 hours per night greater than 70% of the nights. The patient should be asked about symptoms such as excessive daytime sleepiness, quality of sleep, decreased nocturia, increased mental functioning such as memory, mood, and concentration. Data The data obtained during this sleep study is adequate for interpretation. Certification This sleep study has been reviewed by a board certified sleep medicine physician.
[2025-03-01 12:22] VITALS: BMI 31.4
== END 2025-02-11 14:59 | disposition home or self-care (01) ==
PROVIDERS: PCP Nurse Practitioner Family; Visit Provider Physician Assistant
DX: G47.33 Obstructive sleep apnea (adult) (pediatric) (principal)
CPT/HCPCS: 95800

== ENCOUNTER 2025-03-18 15:59 | Outpatient (CLI) | payer OTHER, SELFPAY ==
--- OUTSIDE RECORDS SUMMARY | 2025-03-18 16:01 | XMS_ITS | Data Portability ---
Author Organization [facility] Address [address] [place] [address] Care Team Providers Care Lawn Mower Name Role Phone NALINI CURRIE Primary Care Provider [phone] LEE LEWIS Primary Care Provider Unavailabl e [...] recorded. Referral physical therapist referral 2024 025 [facility], [address], [place], [address], 14:34:45 Procedures None recorded. Surgeries None recorded. Imaging XR, foot, 3 or more view 2024 025 [facility] ([facility] [address] [place], [address], 10:32:13 Medication Orders diclofenac 1 % topical gel 2024 025 [id number], [address], [place], [place], [id number], 16:36:10 Patient TargetsNo targets recorded. Patient Instructions Encounter Date Encounter Id Patient Instructions Last Modified By Organization Details Last Modified Time 11/21/2023 [id number] presbyopia: care instructions [email or web address] Not available 11/21/2023 [...] more view No observ ation record ed. [facility] Scheduling [address] [place], [address], 10/14/2024 11:08:42 Result Notes None recorded. Problems No Known Problems Medical Equipment None Reported. Allergies Allergen ID Allergen Name Allergen Category Reaction Reaction Severity Criticality Documentation Date Start Date Code Code System Note Provider Name and Address Organization Details Recorded Time [id number] tramadol medicatio n Not available Not available Not available 10/07/2024 02961 RxNorm GITA [place], [place] - [facility] 16:18:26 Medications Name Sig [...] Not Available No t Available amoxicillin 875 mg-potassiu m clavulanate 125 mg tablet TAKE 1 [...] Body weight Heart rate Body temperature Systolic And Diastolic Provider Name and Address Organization Details Last Updated DateTime 5 187.96 cm 30.4 kg/m2 244905. 95 g 91 /min 95.9 [degF] 157/88 mm[Hg] Winnie Sommer LPN [place] - [facility] 5 16:17:50 Date Recorded Body height Body temperature Heart rate Body mass index (BMI) Body weight Systolic And Diastolic Provider Name and Address Organization Details Last Updated DateTime 3 187.96 cm 96.9 [degF] 86 /min 33.8 kg/m2 358705. 23 g 140/80 mm[Hg] Haylee Patten [facility] 3 16:17:36 Date Recorded Body height Body mass index (BMI) Body weight Body temperature Heart rate Systolic And Diastolic Provider Name and Address Organization Details Last Updated DateTime 5 187.96 cm 31.4 kg/m2 073571. 26 g 98.6 [degF] 99 /min 136/85 mm[Hg] Wily Keith MA [facility] 5 16:06:36 Date Recorded Body temperature Body weight Heart rate Body mass index (BMI) Body height Systolic And Diastolic Provider Name and Address Organization Details Last Updated DateTime 4 96.9 [degF] 547494. 69 g 92 /min 31.4 kg/m2 187.96 cm 142/89 mm[Hg] Carmelita Walton MA [facility] 4 15:33:03 Date Recorded Body height Body mass index (BMI) Body weight Heart rate Systolic And Diastolic Provider Name and Address Organization Details Last Updated DateTime 01/04/2025 187.96 cm 32.3 kg/m2 492283.4 g 89 /min 174/95 mm[Hg] Saumya Romo MA [facility] 01/04/2025 16:05:04 Social History Question Answer Notes LastModified by Organizat ion Details LastModified Time Tobacco Smoking Status Never Smoker [facility] 03/29/2021 16:10:28 Do You Have An Advance [...] Or The Highest Degree You Have Received? [id number] Information not available 03/29/2021 Do You Have A Medical Power Of Crew Leader Gluing? No Information not available 03/29/2021 What Was [...] completed Missy Ramos RN null, [place] [facility] 11/26/2020 11:18:19 COVID-19, mRNA, LNP-S, PF, 100 mcg/0.5mL dose or 50 mcg/0.25mL dose 12/24/2020 completed Luz Pendleton MA null, [place] - [facility] 12/24/2020 12:10:13 Past Encounters Encounter ID Performer Location Encounter Start Date Encounter Closed Date Diagnosis/Indication Diagnosis SNOMED-CT Code Diagnosis ICD10 Code Diagnosis Note [id number] [facility] [address] [facility] [place] [place] [address] 11/26/2020 10:49:46 12/02/2020 12:05:49 Administration of SARS-CoV-2 antigen vaccine 465601007 Z23 [id number] [facility] [address] [place] [address] 12/24/2020 10:33:47 12/27/2020 11:10:13 Administration of SARS-CoV-2 antigen vaccine 162929846 Z23 [id number] Pritesh Piedra MD [facility] [address] [place] [id number] 03/29/2021 15:46:24 04/05/2021 10:21:30 Tear film insufficiency of bilateral eyes 3780522299 67178 H04.123 Presbyopia 70943691 H52. 4 [id number] Pritesh Piedra MD [facility] [address] [place] [id number] 06/05/2022 15:53:50 06/06/2022 07:36:46 Presbyopia 71447202 H52.4 Type 2 nadja betes mellitus without complication 802443584 E11.9 Suspected glaucoma of right eye 4117473947 5184266 H40.062 [id number] Pritesh Piedra MD [facility] [address] [place] [id number] 10/08/2022 15:59:23 10/12/2022 07:30:51 Glaucoma suspect 515920909 H40.761 [id number] Pritesh Piedra MD [facility] [address] [place] [id number] 11/21/2023 15:20:01 11/22/2023 09:44:35 Presbyopia 96077265 H52.4 Type 2 nadja betes mellitus without complication 676037366 E11.9 Suspected glaucoma of right eye 5540393133 0329420 H40.001 Regular astigmatism 6890 5002 H52.786 [id number] [facility] [address] [place] [id number] 10/07/2024 16:08:45 10/08/2024 08:52:27 Plantar fasciitis 762853600 M72.2 [id number] [facility] [address] [place] [id number] 2 11/18/2024 15:58:45 11/23/2024 15:05:46 Plantar fasciitis 497137899 M72.2 [id number] [facility] [address] [place] [address] 01/04/2025 15:32:54 01/07/2025 08:42:50 Plantar fasciitis 439034224 M72.2 Health Concerns Section Related Observation LastModified by Organization Detai ls LastModified Time None Recorded Concern Status LastModified by Organization Details LastModified Time None Recorded Advance Directives Directive N: Payers Insurance Date Sequence Insurance Name Policy Number Policy Meza Covered Member ID Meza Member ID Guarantor Name 12/26/2020 1 [employer] - ALLIED BENEFITS - OPEN ACCESS [id number] Gelymeredith Fayeley [id number] Gely Leon Notes Date Note Type Note Provider Name and Address Organization Details Recorded Time 10/08/2022 text/html F/U OHTN in OD after steroid shot in her knee, She gets every 12-18 months.NO comp. now Pritesh Piedra MD [address] [place], [address], [facility] 10/11/2022 13:34:23 11/21/2023 text/html Diabetic since a few years, recently changed fro Metformin to Ozmpic Pritesh Piedra MD [address] [place], [address], [facility] - [facility] 11/21/2023 16:05:14 10/07/2024 text/html Patient presents to clinic for pain to the bottom of the left heel. Pain is worse with 1st step out of bed in the morning. Patient relates a sharp shooting pain in the bottom of the heel Donahue Ronald DPM [address] [place], [address], [facility] - [facility] 10/07/2024 16:31:28 11/18/2024 text/html Patient returns to clinic for pain to the bottom of the left heel. Pain is worse with 1st step out of bed in the morning. Patient relates a sharp shooting pain in the bottom of the heel Aditya Ronald DPM [address] [place], [address], [facility] - [facility] 11/23/2024 14:40:59 01/04/2025 text/html Patient returns to clinic for pain to the bottom of the left heel. Pain is much better now, even with 1st step out of bed in the morning. Aditya Cardenas DPLester [address], [place], [address], [facility] - [facility] 01/04/2025 16:12:00 OBGyn Episode No OBEpisode recorded.
[2025-03-18 16:15] LABS: Hematocrit 44.9 % (37.0-47.0); Hemoglobin 14.1 g/dL (12.0-15.0); Immature Granulocyte Percent A 0.3 % (0-0.5); Lymphocytes Absolute Auto 2.93 K/mm3 (0.9-3.2); Mean Corpuscular HGB Conc 31.4 g/dl (32-36); Mean Corpuscular Hemoglobin 28.0 pg (26-34); Mean Corpuscular Volume 89.3 fl (80-100); Nucleated Red Blood Cells Absolute Auto 0.000 K/mm3 (0.0-0.012); Nucleated Red Blood Cells Perc 0.0 % (0.0-0.2); Platelet Count Result 195 k/mm3 (150-375); Red Blood Count 5.03 M/mm3 (4.2-5.4); White Blood Count 6.4 K/mm3 (4.5-10.0)
[2025-03-18 16:41] LABS: Alanine Aminotransferase 19 U/L (6-35); Albumin Level 4.4 g/dL (3.5-5.1); Alkaline Phosphatase 86 U/L (38-126); Anion Gap 7 mmol/L (4-12); Aspartate Amino Transferase 32 U/L (14-36); Bilirubin,Total 0.4 mg/dL (0.2-1.3); Blood Urea Nitrogen 15 mg/dL (7-17); Calcium 9.6 mg/dL (8.4-10.2); Carbon Dioxide 29 mmol/L (22-30); Chloride 104 mmol/L (98-107); Cholesterol 195 mg/dL (0-200); Estimated Glomerular Filt Rate > 60; Glucose 83 mg/dL (65-110); HDL Direct 50 mg/dL; Potassium 4.4 mmol/L (3.4-5.0); Sodium 140 mmol/L (137-145); Total Protein 7.7 g/dL (6.3-8.2); Triglycerides 150 mg/dL (<150)
[2025-03-18 21:40] LABS: Hemoglobin A1C 5.7 % (<5.7)
== END 2025-03-18 16:00 | disposition home or self-care (01) ==
PROVIDERS: PCP Nurse Practitioner Family; Visit Provider Nurse Practitioner Family
DX: E78.5 Hyperlipidemia, unspecified (principal); E11.65 Type 2 diabetes mellitus with hyperglycemia; E66.9 Obesity, unspecified; G43.909 Migraine, unspecified, not intractable, without status migrainosus
CPT/HCPCS: 36415; 80053; 80061; 83036; 85025

== ENCOUNTER 2025-04-15 00:43 | Day surgery (SDC) | payer OTHER, SELFPAY ==
[2025-03-29 16:03] VITALS: BMI 30.2
[2025-04-15 07:50] VITALS: BP 146/81; PULSE 84; RESP 18; TEMP 36.7; O2SAT 100
[2025-04-15] MEDS: LACTATED RINGERS 1,000 ML 150 ML IV CONT (08:03)
--- NOTE | 2025-04-15 08:10 | P.PNAN_ITS ---
Anes - Initial Pre Proc Eval Procedure: Operation Date: 04/15/25 09:00 Proposed Procedures p Screening Colonoscopy - Kamar Arreaga MD Date/Time: 04/15/25 08:10 Surgeon: Kamar Arreaga MD Pre Op Diagnosis: Neoplasm screening Patient Data Age: 65 Gender: F Height: 1.88 m Weight: 107.9 kg Last Vital Signs Temp 36.7 C 04/15/25 07:50 Pulse 84 04/15/25 07:50 Resp 18 04/15/25 07:50 BP 146/81 H 04/15/25 07:50 Pulse Ox 100 04/15/25 07:50 Allergies Allergy/AdvReac Type Severity Reaction Status Date / Time coconut Allergy Unknown Hives Verified 04/15/25 07:49 tramadol AdvReac Severe hallucinati Verified 04/15/25 07:49 ons Home Medications ?Medication ?Instructions ?Recorded ?Confirmed ?Type albuterol sulfate 90 mcg/actuation 2 inh inhalation Q6 H PRN shortness 04/08/24 03/29/25 Rx aerosol inhaler (Proventil HFA) of breath or wheezing #8.5 grams tirzepatide 2.5 mg/0.5 mL 2.5 mg/0.5 mL Pen Injector#2 12/08/24 04/15/25 Sample subcutaneous pen injector Samples (Mounjaro) tirzepatide 5 mg/0.5 mL 5 mg (0.5 mL) subcut WEEKLY #2 mL 04/23/25 Rx subcutaneous pen injector (Mounjaro) Laboratory Tests 04/15/25 07:59 POC Capillary Glucose 80 mg/dl (65-105) Patient hx anesthesia problems: none Family hx anesthesia problems: none Results Review: All pre-operative results and documents have been reviewed as part of the pre- operative evaluation. [facility], [facility] Past Medical History Medical History Trochanteric bursitis of right hip Left shoulder pain Cervical spine pain Right shoulder pain Rotator cuff tear, non-traumatic Trichomonas vaginalis (TV) infection Postmenopausal Trigger finger of left thumb COPD (chronic obstructive pulmonary disease) Ascending aorta dilatation 4.0 cm on 12/2017 ct Body mass index (BMI) 35.0-35.9, adult (04/10/17) Diastolic dysfunction Dyslipidemia Impaired glucose tolerance DEBBIE on CPAP Trigger thumb, right thumb Trigger finger of right thumb DEBBIE (obstructive sleep apnea) Family history of colon cancer Hyperlipidemia, unspecified Seasonal allergies Diabetes Surgical History Surgical History S/P knee surgery History of back surgery History of surgical removal of ganglion cyst H/O shoulder surgery H/O tubal ligation H/O: hysterectomy Family History Family History Mother Cerebrovascular accident Family history of cardiovascular disease Sibling Hypertension Family history of elevated blood lipids Family history of diabetes mellitus in first degree relative Father Patient's father is Sibling Carcinoma of colon Sibling Carcinoma of colon Other Diabetes mellitus Social History Social History Smoking status: Never smoker Second hand tobacco smoke exposure: No Alcohol intake: current Alcohol use details: glass of wine occasionally Substance use: current Substance use type: marijuana Other substance usage details: for sleep Last use: 03/29/25 Do You Feel Safe in your Home?: Yes Lack of Transportation: No Lack of Food: Never True Current Housing: I Have Housing Concerned About Future Housing: No Difficulty Paying Gas/Electric Bills: No Difficulty Paying for Meds: YES Currently Unemployed: No Education: Trade/Vocational Certificate Difficulty w/ Childcare or Family Care: No Living arrangements: with family Occupation/Education: occupation Gender identity (if verbalized by the patient): Female Spiritual care concerns: No Agree to blood products: Yes Anes - Eval Final PreProcedure Day of Procedure 04/15/25 08:10 Patient weight: obese Heart: regular rate and rhythm Lungs: clear to auscultation Airway: Mallampati scale class II Neurological: alert and oriented Last oral intake: >/= 8 hours ASA classification: III Emergent: no Anesthetic plan: proceed Anesthesia type and monitoring: general GIVS and standard monitoring Results Review: All pre-operative results and documents have been reviewed as part of the pre- operative evaluation. Informed Consent: The patient's anesthetic plan and its attendant risks and benefits were discussed with the patient/family/POA. Questions were solicited and answers provided to the satisfaction of the patient/family/POA.
--- NOTE | 2025-04-15 08:25 | PM.HPGS ---
History of Present Illness History of Present Illness Consent: Risks, benefits, and alternatives have been discussed and questions answered. Patient agrees to proceed with procedure. Chief complaint: Neoplasm screening Narrative: Gely Leon is a 65 year old female with history of colon polyps and 2 siblings with colon cancer Review of Systems Review of Systems: All systems reviewed & are unremarkable except as noted in HPI and below PMFSH Past Medical History Medical History Trochanteric bursitis of right hip Left shoulder pain Cervical spine pain Right shoulder pain Rotator cuff tear, non-traumatic Trichomonas vaginalis (TV) infection Postmenopausal Trigger finger of left thumb COPD (chronic obstructive pulmonary disease) Ascending aorta dilatation 4.0 cm on 12/2017 ct Body mass index (BMI) 35.0-35.9, adult (04/10/17) Diastolic dysfunction Dyslipidemia Impaired glucose tolerance DEBBIE on CPAP Trigger thumb, right thumb Trigger finger of right thumb DEBBIE (obstructive sleep apnea) Family history of colon cancer Hyperlipidemia, unspecified Seasonal allergies Diabetes Surgical History Surgical History S/P knee surgery History of back surgery History of surgical removal of ganglion cyst H/O shoulder surgery H/O tubal ligation H/O: hysterectomy Family History Family History Mother Cerebrovascular accident Family history of cardiovascular disease Sibling Hypertension Family history of elevated blood lipids Family history of diabetes mellitus in first degree relative Father Patient's father is Sibling Carcinoma of colon Sibling Carcinoma of colon Other Diabetes mellitus Social History Social History Smoking status: Never smoker Second hand tobacco smoke exposure: No Alcohol intake: current Alcohol use details: glass of wine occasionally Substance use: current Substance use type: marijuana Other substance usage details: for sleep Do You Feel Safe in your Home?: Yes Lack of Transportation: No Lack of Food: Never True Current Housing: I Have Housing Concerned About Future Housing: No Difficulty Paying Gas/Electric Bills: No Difficulty Paying for Meds: YES Currently Unemployed: No Education: Trade/Vocational Certificate Difficulty w/ Childcare or Family Care: No Living arrangements: with family Occupation/Education: occupation Gender identity (if verbalized by the patient): Female Spiritual care concerns: No Agree to blood products: Yes Meds Home Medications and Allergies Home Medications ?Medication ?Instructions ?Recorded ?Confirmed ?Type albuterol sulfate 90 mcg/actuation 2 inh inhalation Q6H PRN shortness 04/08/24 03/29/25 Rx aerosol inhaler (Proventil HFA) of breath or wheezing #8.5 grams tirzepatide 2.5 mg/0.5 mL 2.5 mg/0.5 mL Pen Injector#2 12/08/24 04/15/25 Sample subcutaneous pen injector Samples (Mounjaro) tirzepatide 5 mg/0.5 mL 5 mg (0.5 mL) subcut WEEKLY #2 mL 03/18/25 Rx subcutaneous pen injector (Mounjaro) Allergies Allergy/AdvReac Type Severity Reaction Status Date / Time coconut Allergy Unknown Hives Verified 04/15/25 07:49 tramadol AdvReac Severe hallucinati Verified 04/15/25 07:49 ons Vital Signs Vital Signs - 24 hr 04/15/25 07:50 Temperature 98.1 F Pulse Rate 84 Respiratory Rate 18 Blood Pressure 146/81 H Pulse Oximetry 100 Exam Const: General: comfortable and no acute distress HENMT: Face/Nose/Sinus: Normal nares present Eyes: General: appearance normal, both eyes and all related structures Neck: Neck: no JVD Resp: Auscultation: clear to auscultation bilaterally Cardio: Rate: regular rate Rhythm: regular rhythm GI: Inspection: non-distended GI Palp: Yes Soft to palpation Skin: General skin exam: normal color Neuro: Speech: normal speech Extrem: General: normal to inspection Psych: Mental Status: mental status grossly normal Assessment and Plan Assessment and plan (1) FHx: colon cancer: Code(s): Z80.0 - Family history of malignant neoplasm of digestive organs Status: Acute Assessment and Plan: colonoscopy (2) Hx of colonic polyps: Code(s): Z86.010 - Personal history of colon polyps Status: Acute
--- NOTE | 2025-04-15 08:38 | S_PTH ---
PATIENT: Gely Leon LOC: [facility]#:[id number] AGE/SX: 65/F ROOM: RE04/15/[address]: Kamar Arreaga MD : 1960 BED: DIS: 04/15/2025 SPEC #: [id number] RECD: 04/15/25 10:34 STATUS: SHAKIRA REFaviola #: [id number] TYREE: 04/15/25 08:[address]: Kamar Arreaga DEPT: [facility] Surgical RECD BY: Shena Chapin ENTERED: 04/15/25 10:35 SP TYPE: Surgical OTHR DR: Lenora Castorena APRN Tissues: A - Colon Polypectomy Procedures: Hematoxylin and Eosin Stain Gross and Microscopic Level 4
[2025-04-15 08:44] VITALS: BP 108/63; PULSE 79; RESP 21; O2SAT 97
[2025-04-15 08:54] VITALS: BP 125/76; PULSE 75; RESP 20; O2SAT 98
[2025-04-15 09:04] VITALS: BP 138/85; PULSE 76; RESP 20; O2SAT 100
== END 2025-04-15 09:15 | disposition home or self-care (01) ==
PROVIDERS: PCP Nurse Practitioner Family; Referring Provider Nurse Practitioner Family; Visit Provider Internal Medicine Gastroenterology
PROC: 0DJD8ZZ Inspection of Lower Intestinal Tract, Via Natural or Artificial Opening Endoscopic (ICD-10-PCS; CPT 45378; principal; 2025-04-15 09:00)
DX: Z12.11 Encounter for screening for malignant neoplasm of colon (principal); K63.5 Polyp of colon; K64.8 Other hemorrhoids; E78.5 Hyperlipidemia, unspecified; E11.9 Type 2 diabetes mellitus without complications; J44.9 Chronic obstructive pulmonary disease, unspecified; G47.33 Obstructive sleep apnea (adult) (pediatric); I50.30 Unspecified diastolic (congestive) heart failure; Z79.51 Long term (current) use of inhaled steroids; Z79.85 Long-term (current) use of injectable non-insulin antidiabetic drugs; Z99.89 Dependence on other enabling machines and devices; Z98.890 Other specified postprocedural states; Z98.1 Arthrodesis status; Z98.51 Tubal ligation status; Z86.79 Personal history of other diseases of the circulatory system; Z80.0 Family history of malignant neoplasm of digestive organs; Z82.49 Family history of ischemic heart disease and other diseases of the circulatory system
CPT/HCPCS: 45385; 82948; 88305; J2003; J2704; J7120